=== PATIENT | male | born 1955 | race American Indian/Alaskan Native ===

== ENCOUNTER 2017-09-27 12:06 | Inpatient (IN) | payer OTHER ==
[2017-09-27] MEDS ORDERED: NACL 0.9% 1000 ML 1,000 ML ONE (12:57)
[2017-09-27] MEDS ORDERED: CARDIZEM IV ONE (12:58)
[2017-09-27] MEDS ORDERED: NACL 0.9% 1000 ML 1,000 ML IV ONE (12:58)
[2017-09-27] MEDS ORDERED: CARDIZEM ONE (12:58)
[2017-09-27 13:06] LABS: Basophils # (Auto) 0.1 K/mm3 (0.0-0.1); Basophils % (Auto) 0.4 % (0.0-1.8); Hematocrit 50.1 % (35.5-45.6); Hemoglobin 16.5 gm/dl (11.8-15.2); Lymphocytes # (Auto) 1.5 K/mm3 (1.2-5.4); Lymphocytes % (Auto) 11.5 % (13.4-35.0); Mean Corpuscular HGB Conc 33 % (32-34); Mean Corpuscular Hemoglobin 31 pg (28-32); Mean Corpuscular Volume 95 fl (84-94); Monocytes % (Auto) 7.7 % (0.0-7.3); Platelet Count 308 K/mm3 (140-440); Red Blood Count 5.26 M/mm3 (3.65-5.03); Red Cell Distribution Width 14.3 % (13.2-15.2)
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
[2017-09-27 13:26] LABS: Alanine Aminotransferase 93 units/L (7-56); BUN/Creatinine Ratio 56; Blood Urea Nitrogen 79 mg/dL (9-20); Calcium 9.3 mg/dL (8.4-10.2); Hemolysis Index 4
[2017-09-27] MEDS ORDERED: HumuLIN R IV ONE (13:29)
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
[2017-09-27 13:45] LABS: Bilirubin,Urine NEG (Negative); Blood,Urine LG (Negative); Color,Urine Yellow (Yellow); Mucus,Urine FEW /HPF
--- NOTE | 2017-09-27 13:48 | History and Physical Report ---
History of Present Illness Chief complaint: confused History of present illness: 62 YO Male with no PMH presents to ED for evaluation. Pt is confused and unable to provide history. Pt history taken from family who is at bedside during exam and interview. As per family, the patient was in his usual state of health on September 18, which is the last time either family member present saw or spoke to the patient. [facility] Police were called to do a "well check" on the patient by a friend. Upon arrival, the patient was found down in his home and confused. EMS was notified, and upon arrival the patient was found to be confused and unable to provide history. Pt transported to [facility] for further care and evaluation. Pt seen and evaluated in ED and found to have Atrial Fib, Encephalopathy, as well as RLL Pneumonia complicated by Sepsis. Pt admitted to telemetry, and initiated on Sepsis/Pneumonia protocol. No reports of fever, chills, CP, Palpitations, NVD, Trauma, Falls, recent ill contacts. Past History Past Medical History: No medical history, other (reviewed) Past Surgical History: No surgical history, Other (reviewed) Social history: single, Lives alone. denies: smoking, alcohol abuse, prescription drug abuse Family history: diabetes, hypertension Medications and Allergies Allergies Allergy/AdvReac Type Severity Reaction Status Date / Time Unable to Assess Allergy Verified 09/27/17 13:00 Home Medications Medication Instructions Recorded Confirmed Last Taken Type No Known Home Medications [No 09/27/17 09/27/17 Unknown History Reported Home Medications] Active Meds: Active Medications Diltiazem HCl (Cardizem/D5w 100mg/100ml) 100 mg in 100 mls @ 5 mls/hr IV TITR HEATH; Protocol Review of Systems ROS unobtainable: due to mental status Exam - Constitutional General appearance: Present: mild distress - EENT Eyes: Present: PERRL ENT: hearing intact, clear oral mucosa - Neck Neck: Present: supple, normal ROM - Respiratory Respiratory effort: labored Respiratory: bilateral: diminished - Cardiovascular Rhythm: irregularly irregular Heart Sounds: Present: S1 & S2. Absent: rub, click - Extremities Extremities: pulses symmetrical, No edema Peripheral Pulses: abnormal (capillary refill greater than 3.6 seconds.) - Abdominal General gastrointestinal: Present: soft, non-tender, non-distended, normal bowel sounds Male genitourinary: Present: normal - Integumentary Integumentary: Present: clear, dry, clammy, decreased turgor - Musculoskeletal Musculoskeletal: generalized weakness - Psychiatric Psychiatric: no intact judgment & insight, no memory intact - Neurologic Neurologic: CNII-XII intact, no focal deficits, moves all extremities, no gait normal Results - Labs CBC & Chem 7: 09/27/17 12:47 09/27/17 12:47 Labs: Abnormal lab results 09/27/17 09/27/17 09/27/17 Range/Units 12:47 12:47 12:54 WBC 13.3 H (4.5-11.0) K/mm3 RBC 5.26 H (3.65-5.03) M/mm3 Hgb 16.5 H (11.8-15.2) gm/dl Hct 50.1 H (35.5-45.6) % MCV 95 H (84-94) fl Lymph % (Auto) 11.5 L (13.4-35.0) % [place] % (Auto) 7.7 H (0.0-7.3) % [place] # 1.0 H (0.0-0.8) K/mm3 Seg Neutrophils % 80.4 H (40.0-70.0) % Seg Neutrophils # 10.7 H (1.8-7.7) K/mm3 VBG pH (7.320-7.420) Sodium 146 H (137-145) mmol/L BUN 79 H (9-20) mg/dL Glucose 549 H* (75-100) mg/dL POC Glucose 392 H (70-105) Lactic Acid (0.7-2.0) mmol/L AST 90 H (5-40) units/L ALT 93 H (7-56) units/L Alkaline Phosphatase 163 H (35-129) units/L Total Creatine Kinase (55-170) units/L Albumin 3.0 L (3.9-5) g/dL Urine WBC (Auto) (0.0-6.0) /HPF 09/27/17 09/27/17 09/27/17 Range/Units 12:59 12:59 12:59 WBC (4.5-11.0) K/mm3 RBC (3.65-5.03) M/mm3 Hgb (11.8-15.2) gm/dl Hct (35.5-45.6) % MCV (84-94) fl Lymph % (Auto) (13.4-35.0) % [place] % (Auto) (0.0-7.3) % [place] # (0.0-0.8) K/mm3 Seg Neutrophils % (40.0-70.0) % Seg Neutrophils # (1.8-7.7) K/mm3 VBG pH 7.517 H (7.320-7.420) Sodium (137-145) mmol/L BUN (9-20) mg/dL Glucose (75-100) mg/dL POC Glucose (70-105) Lactic Acid 3.50 H* (0.7-2.0) mmol/L AST (5-40) units/L ALT (7-56) units/L Alkaline Phosphatase (35-129) units/L Total Creatine Kinase 682 H (55-170) units/L Albumin (3.9-5) g/dL Urine WBC (Auto) (0.0-6.0) /HPF 09/27/17 Range/Units 13:10 WBC (4.5-11.0) K/mm3 RBC (3.65-5.03) M/mm3 Hgb (11.8-15.2) gm/dl Hct (35.5-45.6) % MCV (84-94) fl Lymph % (Auto) (13.4-35.0) % [place] % (Auto) (0.0-7.3) % [place] # (0.0-0.8) K/mm3 Seg Neutrophils % (40.0-70.0) % Seg Neutrophils # (1.8-7.7) K/mm3 VBG pH (7.320-7.420) Sodium (137-145) mmol/L BUN (9-20) mg/dL Glucose (75-100) mg/dL POC Glucose (70-105) Lactic Acid (0.7-2.0) mmol/L AST (5-40) units/L ALT (7-56) units/L Alkaline Phosphatase (35-129) units/L Total Creatine Kinase (55-170) units/L Albumin (3.9-5) g/dL Urine WBC (Auto) 7.0 H (0.0-6.0) /HPF Assessment and Plan - Patient Problems (1) Sepsis Current Visit: Yes Status: Acute Qualifiers: Sepsis type: sepsis due to unspecified organism Qualified Code(s): A41.9 - Sepsis, unspecified organism Plan to address problem: Sepsis Protocol: IV antibiotic therapy, blood cultures, Chest x ray, urinialysis , CBC, CMP, monitor uop q shift, serial lactic acid (2) Encephalopathy Current Visit: Yes Status: Acute Plan to address problem: CT Head, neuro checks, supportive care, seizure precautions, (3) Atrial fibrillation with RVR Current Visit: Yes Status: Acute Plan to address problem: New onset A Fib: Echo, cardiology consulted, medical cardioversion with cardizem , cardizem drip switched to oral cardizem, Admit to telemetry, thyroid panel, supportive care, (4) Lactic acidosis Current Visit: Yes Status: Acute Plan to address problem: IVF resuscitation therapy, treat sepsis, repeat lactic acid level. (5) Pneumonia Current Visit: Yes Status: Acute Qualifiers: Pneumonia type: due to unspecified organism Laterality: right Lung location: lower lobe of lung Qualified Code(s): J18.1 - Lobar pneumonia, unspecified organism Plan to address problem: Pneumonia protocol: Iv antibiotics, supplemental oxygen, nebulizer therapy, NIPPV as clinically indicated, blood cultures, chest x ray. (6) Uncontrolled diabetes mellitus Current Visit: Yes Status: Acute Qualifiers: Diabetes mellitus type: type 1 Diabetes mellitus complication status: with hyperglycemia Qualified Code(s): E10.65 - Type 1 diabetes mellitus with hyperglycemia Plan to address problem: ADA diet, insulin, accu check, Hgb A1c, (7) DVT prophylaxis Current Visit: Yes Status: Acute Plan to address problem: scd to BLE while in bed.
[2017-09-27 13:54] LABS: Amphetamine Screen,Urine PRESUMPTIVE NEGATIVE; Benzodiazepines Screen,Urine PRESUMPTIVE NEGATIVE; Cannabinoid Screen,Urine PRESUMPTIVE NEGATIVE; Cocaine Screen,Urine PRESUMPTIVE NEGATIVE; Methadone Screen,Urine PRESUMPTIVE NEGATIVE; Opiate Screen,Urine PRESUMPTIVE NEGATIVE
[2017-09-27] MEDS ORDERED: CARDIZEM/D5W 100MG/100ML 100 MG/100 ML BAG IV SCH (14:00)
--- NOTE | 2017-09-27 14:47 | XRay Report ---
Portable chest: Altered mental status. Mild patchy changes are identified at the lower right lung base. The rest of the right lung is clear and well inflated in the left lung is unremarkable. There is probably mild enlargement of the left ventricle but no vascular congestion. No prior study currently available for comparison. Impression: Suspicious for right lower lobe pneumonia.
--- NOTE | 2017-09-27 15:39 | Cat Scan Report ---
CTA chest: SOB, elevated d-dimer. Transverse images are obtained through the chest using pulmonary embolus protocol. Coronal and sagittal 2-D reformatted images are included as well as 3-D MIP images. There is good opacification of pulmonary arteries cardiac chambers and thoracic aorta. No filling defects identified in the pulmonary vessels or cardiac chambers. The thoracic aorta is normal in size and contour. No hilar or mediastinal adenopathy appreciated. There is extensive pulmonary consolidation in the right lower lobe with air bronchograms. No endobronchial lesion identified. The right lung as well as the left lung is otherwise unremarkable. There is diffuse spondylosis throughout the thoracic spine with a mild dextroscoliosis of and increased kyphosis. Impression: 1. Right lower lobe pneumonia. 2. No identified pulmonary embolus.
[2017-09-27] MEDS ORDERED: LEVAQUIN 750MG/150ML 750 MG/150 ML BAG IV ONE (15:40)
[2017-09-27] MEDS ORDERED: CARDIZEM PO ONE (16:00)
[2017-09-27] MEDS ORDERED: NACL 0.9% 1000 ML IV ONE (16:03)
[2017-09-27] MEDS ORDERED: PROVENTIL IH PRN (16:06)
[2017-09-27] MEDS ORDERED: TYLENOL PO PRN (16:06)
[2017-09-27] MEDS ORDERED: ZOFRAN IV PRN (16:06)
[2017-09-27] MEDS ORDERED: SODIUM CHLORIDE FLUSH SYRINGE 10 ML IV PRN (16:06)
[2017-09-27 16:36] LABS: Free T4 (Free Thyroxine) 0.93 ng/dL (0.76-1.46)
[2017-09-27] MEDS ORDERED: D50W (25GM) Syringe IV PRN (17:24)
[2017-09-27] MEDS: ZITHROMAX 500 MG in NACL 0.9% 250ML 250 ML IV SCH (17:38)
[2017-09-27] MEDS: HumaLOG SUB-Q SCH (19:20)
[2017-09-27] MEDS: ROCEPHIN/NS 2 GM/100 ML 2 GM/100 ML BAG IV SCH (20:00)
[2017-09-27] MEDS: ATIVAN IV PRN (23:44)
[2017-09-27] MEDS: SODIUM CHLORIDE FLUSH SYRINGE 10 ML IV SCH (23:45)
[2017-09-28] MEDS: HumaLOG SUB-Q SCH ×4 (02:10→18:23)
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
[2017-09-28] MEDS ORDERED: CARDIZEM IV ONE (11:11)
--- NOTE | 2017-09-28 11:40 | Progress Note ---
Assessment and Plan Assessment and plan: Sepsis. Etiology secondary to pneumonia. Continue IV antibiotics. Follow blood cultures. Trend lactic acid level. Right lower lobe pneumonia. Continue IV antibiotics as above. Atrial fibrillation with RVR. Patient reportedly had atrial fibrillation noted in the emergency room which is new onset. Patient with medical conversion with IV Cardizem that was later switched to by mouth. Acute renal failure/Acute kidney injury. Etiology secondary to sepsis +/- vasomotor nephropathy/dehydration. Continue to follow BMP. Check renal ultrasound. Toxic metabolic encephalopathy. Etiology secondary to above. Diabetes mellitus type 2, uncontrolled. Continue Accu-Cheks and sliding scale insulin. DVT prophylaxis. Add Lovenox. History Interval history: No new issues overnight. Patient remains confused and required restraints. Hospitalist Physical - Constitutional Vitals: Temp Pulse Resp BP Pulse Ox 98.9 F 60 20 181/90 94 09/28/17 05:31 09/28/17 08:44 09/28/17 08:44 09/28/17 08:44 09/28/17 08:46 General appearance: Present: no acute distress - EENT Eyes: Present: PERRL, EOM intact ENT: hearing intact, clear oral mucosa, dentition normal - Neck Neck: Present: supple, normal ROM - Respiratory Respiratory effort: normal Respiratory: bilateral: CTA - Cardiovascular Rhythm: regular Heart Sounds: Present: S1 & S2. Absent: gallop, rub - Extremities Extremities: no ischemia, No edema, Full ROM - Abdominal General gastrointestinal: soft, non-tender, non-distended, normal bowel sounds - Integumentary Integumentary: Present: clear, warm, dry - Neurologic Neurologic: CNII-XII intact, moves all extremities, other (confused.) Results - Labs CBC & Chem 7: 09/27/17 12:47 09/27/17 12:47 Labs: Laboratory Last Values WBC 13.3 K/mm3 (4.5-11.0) H 09/27/17 12:47 RBC 5.26 M/mm3 (3.65-5.03) H 09/27/17 12:47 Hgb 16.5 gm/dl (11.8-15.2) H 09/27/17 12:47 Hct 50.1 % (35.5-45.6) H 09/27/17 12:47 MCV 95 fl (84-94) H 09/27/17 12:47 MCH 31 pg (28-32) 09/27/17 12:47 MCHC 33 % (32-34) 09/27/17 12:47 RDW 14.3 % (13.2-15.2) 09/27/17 12:47 Plt Count 308 K/mm3 (140-440) 09/27/17 12:47 Lymph % (Auto) 11.5 % (13.4-35.0) L 09/27/17 12:47 [place] % (Auto) 7.7 % (0.0-7.3) H 09/27/17 12:47 Eos % (Auto) 0.0 % (0.0-4.3) 09/27/17 12:47 Baso % (Auto) 0.4 % (0.0-1.8) 09/27/17 12:47 Lymph # 1.5 K/mm3 (1.2-5.4) 09/27/17 12:47 [place] # 1.0 K/mm3 (0.0-0.8) H 09/27/17 12:47 Eos # 0.0 K/mm3 (0.0-0.4) 09/27/17 12:47 Baso # 0.1 K/mm3 (0.0-0.1) 09/27/17 12:47 Seg Neutrophils % 80.4 % (40.0-70.0) H 09/27/17 12:47 Seg Neutrophils # 10.7 K/mm3 (1.8-7.7) H 09/27/17 12:47 D-Dimer 5685.50 ng/mlDDU (0-234) H 09/27/17 13:36 VBG pH 7.517 (7.320-7.420) H 09/27/17 12:59 Sodium 146 mmol/L (137-145) H 09/27/17 12:47 Potassium 4.7 mmol/L (3.6-5.0) 09/27/17 12:47 Chloride 103.6 mmol/L (98-107) 09/27/17 12:47 Carbon Dioxide 24 mmol/L (22-30) 09/27/17 12:47 Anion Gap 23 mmol/L 09/27/17 12:47 BUN 79 mg/dL (9-20) H 09/27/17 12:47 Creatinine 1.4 mg/dL (0.8-1.5) 09/27/17 12:47 Estimated GFR > 60 ml/min 09/27/17 12:47 BUN/Creatinine Ratio 56 % 09/27/17 12:47 Glucose 549 mg/dL (75-100) H* 09/27/17 12:47 POC Glucose 228 (70-105) H 09/28/17 06:20 Hemoglobin A1c 9.3 % (4-6) H 09/27/17 16:12 Lactic Acid 1.70 mmol/L (0.7-2.0) 09/28/17 01:05 Calcium 9.3 mg/dL (8.4-10.2) 09/27/17 12:47 Magnesium 3.90 mg/dL (1.7-2.3) H 09/27/17 15:48 Total Bilirubin 1.10 mg/dL (0.1-1.2) 09/27/17 12:47 AST 90 units/L (5-40) H 09/27/17 12:47 ALT 93 units/L (7-56) H 09/27/17 12:47 Alkaline Phosphatase 163 units/L (35-129) H 09/27/17 12:47 Ammonia 32.0 umol/L (25-60) 09/27/17 12:59 Total Creatine Kinase 682 units/L (55-170) H 09/27/17 12:59 Total Protein 7.9 g/dL (6.3-8.2) 09/27/17 12:47 Albumin 3.0 g/dL (3.9-5) L 09/27/17 12:47 Albumin/Globulin Ratio 0.6 % 09/27/17 12:47 TSH 0.882 mlU/mL (0.270-4.200) 09/27/17 15:48 Free T4 0.93 ng/dL (0.76-1.46) 09/27/17 15:48 Urine Color Yellow (Yellow) 09/27/17 13:10 Urine Turbidity Clear (Clear) 09/27/17 13:10 Urine pH 5.0 (5.0-7.0) 09/27/17 13:10 Ur Specific [place] 1.026 (1.003-1.030) 09/27/17 13:10 Urine Protein 100 mg/dl mg/dL (Negative) 09/27/17 13:10 Urine Glucose (UA) >=500 mg/dL (Negative) 09/27/17 13:10 Urine Ketones Neg mg/dL (Negative) 09/27/17 13:10 Urine Blood Lg (Negative) 09/27/17 13:10 Urine Nitrite Neg (Negative) 09/27/17 13:10 Urine Bilirubin Neg (Negative) 09/27/17 13:10 Urine Urobilinogen 2.0 mg/dL (<2.0) 09/27/17 13:10 Ur Leukocyte Esterase Neg (Negative) 09/27/17 13:10 Urine WBC (Auto) 7.0 /HPF (0.0-6.0) H 09/27/17 13:10 Urine RBC (Auto) 181.0 /HPF (0.0-6.0) 09/27/17 13:10 U Epithel Cells (Auto) < 1.0 /HPF (0-13.0) 09/27/17 13:10 Urine Mucus Few /HPF 09/27/17 13:10 Urine Opiates Screen Presumptive negative 09/27/17 13:10 Urine Methadone Screen Presumptive negative 09/27/17 13:10 Ur Barbiturates Screen Presumptive negative 09/27/17 13:10 Ur Phencyclidine Scrn Presumptive negative 09/27/17 13:10 Ur Amphetamines Screen Presumptive negative 09/27/17 13:10 U Benzodiazepines Scrn Presumptive negative 09/27/17 13:10 Urine Cocaine Screen Presumptive negative 09/27/17 13:10 U Marijuana (THC) Screen Presumptive negative 09/27/17 13:10 Drugs of Abuse Note Disclamer 09/27/17 13:10 Plasma/Serum Alcohol < 0.01 % (0-0.07) 09/27/17 12:52
[2017-09-28] MEDS: CARDIZEM/D5W 100MG/100ML 100 MG/100 ML BAG IV SCH ×2 (11:46→22:30)
[2017-09-28] MEDS: SODIUM CHLORIDE FLUSH SYRINGE 10 ML IV SCH ×2 (11:47→22:22)
[2017-09-28] MEDS: NACL 0.9% 1000 ML 1,000 ML IV SCH ×2 (11:47→22:26)
[2017-09-28] MEDS: ZITHROMAX 500 MG in NACL 0.9% 250ML 250 ML IV SCH (18:23)
--- NOTE | 2017-09-28 19:09 | Ultrasound Report ---
FINAL REPORT EXAM: US RENAL BILAT HISTORY: ARF TECHNIQUE: Directed sonography of the retroperitoneum. PRIORS: None. FINDINGS: The right kidney measures 11.9 cm in longest dimension and the left kidney measures 10.9 cm in longest dimension. Renal cortical echotexture mildly heterogeneous and iso-slightly hypoechoic relative to the liver. Curvilinear, echogenic and shadowing focus left renal upper pole measuring 2 cm compatible with calcification or possible calculus. No other intrarenal calculi, significant hydronephrosis or abnormal perinephric fluid collections. Visualized urinary bladder grossly unremarkable. Round, hyperechoic focus in right inferior hepatic lobe measuring approximately 1 cm, with slight posterior acoustic enhancement. IMPRESSION: 1. Left renal calcification may represent nephrolithiasis, although partially calcified mass cannot be completely excluded based on these imaging findings alone. Clinical correlation and followup suggested. 2. No significant hydronephrosis. 3. Possible hepatic hemangioma. Followup may be warranted.
[2017-09-28] MEDS: ATIVAN IV PRN (22:11)
[2017-09-28] MEDS: LOVENOX SUB-Q SCH (22:11)
[2017-09-28] MEDS: ROCEPHIN/NS 2 GM/100 ML 2 GM/100 ML BAG IV SCH (22:18)
[2017-09-29] MEDS: HumaLOG SUB-Q SCH ×4 (00:46→18:55)
[2017-09-29] MEDS: ATIVAN IV PRN ×2 (04:00→21:43)
[2017-09-29 08:44] LABS: Basophils % (Auto) 0.1 % (0.0-1.8); Eosinophils % (Auto) 0.3 % (0.0-4.3); Hematocrit 47.6 % (35.5-45.6); Hemoglobin 15.4 gm/dl (11.8-15.2); Lymphocytes # (Auto) 1.9 K/mm3 (1.2-5.4); Lymphocytes % (Auto) 15.5 % (13.4-35.0); Mean Corpuscular HGB Conc 32 % (32-34); Mean Corpuscular Hemoglobin 31 pg (28-32); Mean Corpuscular Volume 97 fl (84-94); Monocytes # (Auto) 0.9 K/mm3 (0.0-0.8); Monocytes % (Auto) 7.3 % (0.0-7.3); Platelet Count 307 K/mm3 (140-440); Red Blood Count 4.91 M/mm3 (3.65-5.03); Red Cell Distribution Width 14.2 % (13.2-15.2)
[2017-09-29 08:59] LABS: Alanine Aminotransferase 69 units/L (7-56); Albumin 2.7 g/dL (3.9-5); BUN/Creatinine Ratio 48; Blood Urea Nitrogen 38 mg/dL (9-20); Calcium 9.1 mg/dL (8.4-10.2); Hemolysis Index 7
--- NOTE | 2017-09-29 12:00 | Progress Note ---
Assessment and Plan Assessment and plan: Sepsis. Etiology secondary to pneumonia. Continue IV antibiotics. Follow blood cultures. Trend lactic acid level. Right lower lobe pneumonia. Continue IV antibiotics as above. Atrial fibrillation with RVR. Patient reportedly had atrial fibrillation noted in the emergency room which is new onset. Patient with medical conversion with IV Cardizem that was later switched to by mouth. Acute renal failure/Acute kidney injury. Etiology secondary to sepsis +/- vasomotor nephropathy/dehydration. Continue to follow BMP. Check renal ultrasound. Renal consult. Hypernatremia. Change IVF to D51/4NS. Elevated LFTs. Likely sec to sepsis. Toxic metabolic encephalopathy. Etiology secondary to above. Also, Consider embolic CVA given his afib. Neurology consultation. MRI when stable. Check EEG. Check Ammonia level Diabetes mellitus type 2, uncontrolled. Continue Accu-Cheks and sliding scale insulin. DVT prophylaxis. Add Lovenox. History Interval history: No new issues overnight. Patient remains confused and required restraints. Hospitalist Physical - Constitutional Vitals: Temp Pulse Resp BP Pulse Ox 98.7 F 60 16 170/108 96 09/29/17 07:43 09/29/17 07:43 09/29/17 07:43 09/29/17 07:43 09/29/17 07:43 General appearance: Present: no acute distress - EENT Eyes: Present: PERRL, EOM intact ENT: hearing intact, clear oral mucosa, dentition normal - Neck Neck: Present: supple, normal ROM - Respiratory Respiratory effort: normal Respiratory: bilateral: CTA - Cardiovascular Rhythm: regular Heart Sounds: Present: S1 & S2. Absent: gallop, rub - Extremities Extremities: no ischemia, No edema, Full ROM - Abdominal General gastrointestinal: soft, non-tender, non-distended, normal bowel sounds - Integumentary Integumentary: Present: clear, warm, dry - Neurologic Neurologic: CNII-XII intact, moves all extremities Results - Labs CBC & Chem 7: 09/29/17 07:13 09/29/17 07:13 Labs: Laboratory Last Values WBC 12.0 K/mm3 (4.5-11.0) H 09/29/17 07:13 RBC 4.91 M/mm3 (3.65-5.03) 09/29/17 07:13 Hgb 15.4 gm/dl (11.8-15.2) H 09/29/17 07:13 Hct 47.6 % (35.5-45.6) H 09/29/17 07:13 MCV 97 fl (84-94) H 09/29/17 07:13 MCH 31 pg (28-32) 09/29/17 07:13 MCHC 32 % (32-34) 09/29/17 07:13 RDW 14.2 % (13.2-15.2) 09/29/17 07:13 Plt Count 307 K/mm3 (140-440) 09/29/17 07:13 Lymph % (Auto) 15.5 % (13.4-35.0) 09/29/17 07:13 [place] % (Auto) 7.3 % (0.0-7.3) 09/29/17 07:13 Eos % (Auto) 0.3 % (0.0-4.3) 09/29/17 07:13 Baso % (Auto) 0.1 % (0.0-1.8) 09/29/17 07:13 Lymph # 1.9 K/mm3 (1.2-5.4) 09/29/17 07:13 [place] # 0.9 K/mm3 (0.0-0.8) H 09/29/17 07:13 Eos # 0.0 K/mm3 (0.0-0.4) 09/29/17 07:13 Baso # 0.0 K/mm3 (0.0-0.1) 09/29/17 07:13 Seg Neutrophils % 76.8 % (40.0-70.0) H 09/29/17 07:13 Seg Neutrophils # 9.2 K/mm3 (1.8-7.7) H 09/29/17 07:13 D-Dimer 5685.50 ng/mlDDU (0-234) H 09/27/17 13:36 VBG pH 7.517 (7.320-7.420) H 09/27/17 12:59 Sodium 158 mmol/L (137-145) H D 09/29/17 07:13 Potassium 4.3 mmol/L (3.6-5.0) 09/29/17 07:13 Chloride 120.2 mmol/L (98-107) H 09/29/17 07:13 Carbon Dioxide 25 mmol/L (22-30) 09/29/17 07:13 Anion Gap 17 mmol/L 09/29/17 07:13 BUN 38 mg/dL (9-20) H 09/29/17 07:13 Creatinine 0.8 mg/dL (0.8-1.5) 09/29/17 07:13 Estimated GFR > 60 ml/min 09/29/17 07:13 BUN/Creatinine Ratio 48 % 09/29/17 07:13 Glucose 205 mg/dL (75-100) H 09/29/17 07:13 POC Glucose 227 (70-105) H 09/29/17 06:40 Hemoglobin A1c 9.3 % (4-6) H 09/27/17 16:12 Lactic Acid 1.70 mmol/L (0.7-2.0) 09/28/17 01:05 Calcium 9.1 mg/dL (8.4-10.2) 09/29/17 07:13 Magnesium 3.90 mg/dL (1.7-2.3) H 09/27/17 15:48 Total Bilirubin 1.10 mg/dL (0.1-1.2) 09/29/17 07:13 AST 80 units/L (5-40) H 09/29/17 07:13 ALT 69 units/L (7-56) H 09/29/17 07:13 Alkaline Phosphatase 143 units/L (35-129) H 09/29/17 07:13 Ammonia 32.0 umol/L (25-60) 09/27/17 12:59 Total Creatine Kinase 682 units/L (55-170) H 09/27/17 12:59 Total Protein 6.8 g/dL (6.3-8.2) 09/29/17 07:13 Albumin 2.7 g/dL (3.9-5) L 09/29/17 07:13 Albumin/Globulin Ratio 0.7 % 09/29/17 07:13 TSH 1.080 mlU/mL (0.270-4.200) 09/28/17 12:07 Free T4 0.93 ng/dL (0.76-1.46) 09/27/17 15:48 Urine Color Yellow (Yellow) 09/27/17 13:10 Urine Turbidity Clear (Clear) 09/27/17 13:10 Urine pH 5.0 (5.0-7.0) 09/27/17 13:10 Ur Specific [place] 1.026 (1.003-1.030) 09/27/17 13:10 Urine Protein 100 mg/dl mg/dL (Negative) 09/27/17 13:10 Urine Glucose (UA) >=500 mg/dL (Negative) 09/27/17 13:10 Urine Ketones Neg mg/dL (Negative) 09/27/17 13:10 Urine Blood Lg (Negative) 09/27/17 13:10 Urine Nitrite Neg (Negative) 09/27/17 13:10 Urine Bilirubin Neg (Negative) 09/27/17 13:10 Urine Urobilinogen 2.0 mg/dL (<2.0) 09/27/17 13:10 Ur Leukocyte Esterase Neg (Negative) 09/27/17 13:10 Urine WBC (Auto) 7.0 /HPF (0.0-6.0) H 09/27/17 13:10 Urine RBC (Auto) 181.0 /HPF (0.0-6.0) 09/27/17 13:10 U Epithel Cells (Auto) < 1.0 /HPF (0-13.0) 09/27/17 13:10 Urine Mucus Few /HPF 09/27/17 13:10 Urine Opiates Screen Presumptive negative 09/27/17 13:10 Urine Methadone Screen Presumptive negative 09/27/17 13:10 Ur Barbiturates Screen Presumptive negative 09/27/17 13:10 Ur Phencyclidine Scrn Presumptive negative 09/27/17 13:10 Ur Amphetamines Screen Presumptive negative 09/27/17 13:10 U Benzodiazepines Scrn Presumptive negative 09/27/17 13:10 Urine Cocaine Screen Presumptive negative 09/27/17 13:10 U Marijuana (THC) Screen Presumptive negative 09/27/17 13:10 Drugs of Abuse Note Disclamer 09/27/17 13:10 Plasma/Serum Alcohol < 0.01 % (0-0.07) 09/27/17 12:52
[2017-09-29] MEDS: SODIUM CHLORIDE FLUSH SYRINGE 10 ML IV SCH ×2 (12:20→21:38)
--- NOTE | 2017-09-29 12:47 | Progress Note ---
Assessment and Plan AMS Encephalopathy Sepsis Possible CVA Acute renal insufficiency Hypertension hypernatermia rec: ng tube for free water and nutrition. neuro consult for ams, speech and echo pending Subjective Date of service: 09/29/17 Principal diagnosis: afib Interval history: pt has altered mental status Objective Vital Signs Temp Pulse Resp BP Pulse Ox 09/29/17 07:43 98.7 F 60 16 170/108 96 09/29/17 04:26 97.3 F L 70 22 176/120 92 09/28/17 23:50 97.8 F 42 L 18 138/95 95 09/28/17 22:00 96 09/28/17 20:23 97.6 F 55 L 20 166/101 95 09/28/17 17:02 62 18 183/107 93 09/28/17 16:00 98.0 F - Physical Examination General: Other HEENT: Positive: PERRL, EOMI Neck: Positive: neck supple Cardiac: Positive: Irregularly Regular Lungs: Positive: Decreased Breath Sounds Neuro: Positive: Other (ams) Abdomen: Positive: Soft Extremities: Absent: edema - Labs and Meds Cardiac Enzymes 09/29/17 Range/Units 07:13 AST 80 H (5-40) units/L CBC 09/29/17 Range/Units 07:13 WBC 12.0 H (4.5-11.0) K/mm3 RBC 4.91 (3.65-5.03) M/mm3 Hgb 15.4 H (11.8-15.2) gm/dl Hct 47.6 H (35.5-45.6) % Plt Count 307 (140-440) K/mm3 Lymph # 1.9 (1.2-5.4) K/mm3 [place] # 0.9 H (0.0-0.8) K/mm3 Eos # 0.0 (0.0-0.4) K/mm3 Baso # 0.0 (0.0-0.1) K/mm3 Comprehensive Metabolic Panel 09/29/17 Range/Units 07:13 Sodium 158 H D (137-145) mmol/L Potassium 4.3 (3.6-5.0) mmol/L Chloride 120.2 H (98-107) mmol/L Carbon Dioxide 25 (22-30) mmol/L BUN 38 H (9-20) mg/dL Creatinine 0.8 (0.8-1.5) mg/dL Glucose 205 H (75-100) mg/dL Calcium 9.1 (8.4-10.2) mg/dL AST 80 H (5-40) units/L ALT 69 H (7-56) units/L Alkaline Phosphatase 143 H (35-129) units/L Total Protein 6.8 (6.3-8.2) g/dL Albumin 2.7 L (3.9-5) g/dL - Imaging and Cardiology Echo: pending - Telemetry EKG Rhythm: Atrial Fibrillation (avg 90's)
[2017-09-29] MEDS ORDERED: D5NS 0.2% 1,000 ML IV SCH (13:00)
--- NOTE | 2017-09-29 14:22 | XRay Report ---
FINAL REPORT PROCEDURE: XR ABDOMEN 1V AP TECHNIQUE: AP supine portable radiograph of the abdomen was obtained at 09/29/2017 17:48 (T) . HISTORY: VERIFY DOBHOFF TUBE PLACEMENT COMPARISON: No prior studies are available for comparison. FINDINGS: Feeding tube is visualized. This is coiled over the stomach. The metallic end of the tube appears to be located in the region of the antrum of the stomach. A calculus appears to be visualized projecting over the midportion of the left kidney measuring 2.0 x 1.5 centimeters. No other abnormal calcifications are seen. Moderate degenerative changes seen in the lower lumbar spine. Nonspecific bowel gas pattern present. IMPRESSION: Dobhoff feeding tube tip appears to be located in the region of the antrum of the stomach. Moderate-size calculus left kidney.
--- NOTE | 2017-09-29 14:45 | Event Note ---
received consultation Chart reviewed We will order labs moderate hypernatremia Patient needs IV hydration Will evaluate in the morning
[2017-09-29] MEDS: ZITHROMAX 500 MG in NACL 0.9% 250ML 250 ML IV SCH (18:51)
[2017-09-29] MEDS: CARDIZEM/D5W 100MG/100ML 100 MG/100 ML BAG IV SCH (21:37)
[2017-09-29] MEDS: LOVENOX SUB-Q SCH (21:42)
[2017-09-29] MEDS: ROCEPHIN/NS 2 GM/100 ML 2 GM/100 ML BAG IV SCH (21:57)
[2017-09-30] MEDS: HumaLOG SUB-Q SCH ×4 (01:18→18:36)
[2017-09-30 06:08] LABS: Basophils % (Auto) 0.5 % (0.0-1.8); Eosinophils # (Auto) 0.1 K/mm3 (0.0-0.4); Hematocrit 48.1 % (35.5-45.6); Hemoglobin 15.7 gm/dl (11.8-15.2); Lymphocytes # (Auto) 1.7 K/mm3 (1.2-5.4); Lymphocytes % (Auto) 20.1 % (13.4-35.0); Mean Corpuscular HGB Conc 33 % (32-34); Mean Corpuscular Hemoglobin 32 pg (28-32); Mean Corpuscular Volume 97 fl (84-94); Monocytes # (Auto) 0.8 K/mm3 (0.0-0.8); Monocytes % (Auto) 9.1 % (0.0-7.3); Platelet Count 300 K/mm3 (140-440); Red Blood Count 4.96 M/mm3 (3.65-5.03); Red Cell Distribution Width 14.3 % (13.2-15.2)
[2017-09-30 06:51] LABS: Alanine Aminotransferase 67 units/L (7-56); Albumin 2.5 g/dL (3.9-5); BUN/Creatinine Ratio 43; Blood Urea Nitrogen 30 mg/dL (9-20); Calcium 8.9 mg/dL (8.4-10.2); Hemolysis Index 38
--- NOTE | 2017-09-30 08:29 | Consultation ---
History of Present Illness Consult date: 09/30/17 History of present illness: wsent over all the notes and labs show low sodium presented with encephalopathy factors noted the CT of the brain shows moderate atrophy no acute stroke w/u pending I have ordered EEG Thanks will follow Past History Past Medical History: No medical history, other (reviewed) Past Surgical History: No surgical history, Other (reviewed) Social history: single, Lives alone. denies: smoking, alcohol abuse, prescription drug abuse Family history: diabetes, hypertension Medications and Allergies Allergies Allergy/AdvReac Type Severity Reaction Status Date / Time Unable to Assess Allergy Verified 09/27/17 13:00 Home Medications Medication Instructions Recorded Confirmed Last Taken Type No Known Home Medications [No 09/27/17 09/27/17 Unknown History Reported Home Medications] Active Meds: Active Medications Acetaminophen (Tylenol) 650 mg PO Q4H PRN PRN Reason: Pain MILD(1-3)/Fever >100.5/PIKE Albuterol (Proventil) 2.5 mg IH Q4HRT PRN PRN Reason: Shortness Of Breath Dextrose (D50w (25gm) Syringe) 50 ml IV PRN PRN PRN Reason: Hypoglycemia Enoxaparin Sodium (Lovenox) 40 mg SUB-Q QDAY@2200 HEATH Last Admin: 09/29/17 21:42 Dose: 40 mg Azithromycin 500 mg/ Sodium (Chloride) 250 mls @ 250 mls/hr IV Q24H HEATH Last Admin: 09/29/17 18:51 Dose: 250 mls/hr Ceftriaxone Sodium (Rocephin/Ns 2 Gm/100 Ml) 2 gm in 100 mls @ 200 mls/hr IV Q24H HEATH; Protocol Last Admin: 09/29/17 21:57 Dose: 200 mls/hr Diltiazem HCl (Cardizem/D5w 100mg/100ml) 100 mg in 100 mls @ 5 mls/hr IV TITR HEATH; Protocol Last Admin: 09/29/17 21:37 Dose: 5 mg/hr, 5 mls/hr Dextrose/Sodium Chloride (D5ns 0.2%) 1,000 mls @ 75 mls/hr IV DIRECT HEATH Last Admin: 09/29/17 16:57 Dose: 75 mls/hr Insulin Human Lispro (Humalog) 0 unit SUB-Q Q6HR HEATH; Protocol Last Admin: 09/30/17 01:18 Dose: Not Given Lorazepam (Ativan) 0.25 mg IV Q4H PRN PRN Reason: Agitation Last Admin: 09/29/17 21:43 Dose: 0.25 mg Ondansetron HCl (Zofran) 4 mg IV Q8H PRN PRN Reason: Nausea And Vomiting Last Admin: 09/29/17 21:42 Dose: 4 mg Sodium Chloride (Sodium Chloride Flush Syringe 10 Ml) 10 ml IV BID HEATH Last Admin: 09/29/17 21:38 Dose: 10 ml Sodium Chloride (Sodium Chloride Flush Syringe 10 Ml) 10 ml IV PRN PRN PRN Reason: LINE FLUSH Physical Examination - Vital Signs Vital Signs: Vital Signs Temp Pulse Resp BP Pulse Ox 97.8 F 117 H 27 H 163/117 94 09/27/17 13:45 09/27/17 13:45 09/27/17 13:45 09/27/17 13:45 09/27/17 13:45 Results - Laboratory Findings CBC and BMP: 09/30/17 05:16 09/30/17 05:11 Abnormal Lab Findings: Abnormal Labs 09/27/17 09/27/17 09/27/17 12:47 12:47 12:54 WBC 13.3 H RBC 5.26 H Hgb 16.5 H Hct 50.1 H MCV 95 H Lymph % (Auto) 11.5 L [place] % (Auto) 7.7 H [place] # 1.0 H Seg Neutrophils % 80.4 H Seg Neutrophils # 10.7 H D-Dimer VBG pH Sodium 146 H Chloride BUN 79 H Creatinine Glucose 549 H* POC Glucose 392 H Hemoglobin A1c Lactic Acid Magnesium Total Bilirubin AST 90 H ALT 93 H Alkaline Phosphatase 163 H Total Creatine Kinase Albumin 3.0 L Urine WBC (Auto) 09/27/17 09/27/17 09/27/17 12:59 12:59 12:59 WBC RBC Hgb Hct MCV Lymph % (Auto) [place] % (Auto) [place] # Seg Neutrophils % Seg Neutrophils # D-Dimer VBG pH 7.517 H Sodium Chloride BUN Creatinine Glucose POC Glucose Hemoglobin A1c Lactic Acid 3.50 H* Magnesium Total Bilirubin AST ALT Alkaline Phosphatase Total Creatine Kinase 682 H Albumin Urine WBC (Auto) 09/27/17 09/27/17 09/27/17 13:10 13:36 15:48 WBC RBC Hgb Hct MCV Lymph % (Auto) [place] % (Auto) [place] # Seg Neutrophils % Seg Neutrophils # D-Dimer 5685.50 H VBG pH Sodium Chloride BUN Creatinine Glucose POC Glucose Hemoglobin A1c Lactic Acid Magnesium 3.90 H Total Bilirubin AST ALT Alkaline Phosphatase Total Creatine Kinase Albumin Urine WBC (Auto) 7.0 H 09/27/17 09/27/17 09/27/17 16:12 17:54 18:43 WBC RBC Hgb Hct MCV Lymph % (Auto) [place] % (Auto) [place] # Seg Neutrophils % Seg Neutrophils # D-Dimer VBG pH Sodium Chloride BUN Creatinine Glucose POC Glucose Hemoglobin A1c 9.3 H Lactic Acid 2.70 H* 3.40 H* Magnesium Total Bilirubin AST ALT Alkaline Phosphatase Total Creatine Kinase Albumin Urine WBC (Auto) 09/27/17 09/27/17 09/27/17 19:16 21:10 23:44 WBC RBC Hgb Hct MCV Lymph % (Auto) [place] % (Auto) [place] # Seg Neutrophils % Seg Neutrophils # D-Dimer VBG pH Sodium Chloride BUN Creatinine Glucose POC Glucose 370 H Hemoglobin A1c Lactic Acid 2.60 H* 2.40 H* Magnesium Total Bilirubin AST ALT Alkaline Phosphatase Total Creatine Kinase Albumin Urine WBC (Auto) 09/28/17 09/28/17 09/28/17 01:21 06:20 12:02 WBC RBC Hgb Hct MCV Lymph % (Auto) [place] % (Auto) [place] # Seg Neutrophils % Seg Neutrophils # D-Dimer VBG pH Sodium Chloride BUN Creatinine Glucose POC Glucose 226 H 228 H 278 H Hemoglobin A1c Lactic Acid Magnesium Total Bilirubin AST ALT Alkaline Phosphatase Total Creatine Kinase Albumin Urine WBC (Auto) 09/28/17 09/28/17 09/29/17 17:47 22:16 06:40 WBC RBC Hgb Hct MCV Lymph % (Auto) [place] % (Auto) [place] # Seg Neutrophils % Seg Neutrophils # D-Dimer VBG pH Sodium Chloride BUN Creatinine Glucose POC Glucose 316 H 214 H 227 H Hemoglobin A1c Lactic Acid Magnesium Total Bilirubin AST ALT Alkaline Phosphatase Total Creatine Kinase Albumin Urine WBC (Auto) 09/29/17 09/29/17 09/29/17 07:13 07:13 12:17 WBC 12.0 H RBC Hgb 15.4 H Hct 47.6 H MCV 97 H Lymph % (Auto) [place] % (Auto) [place] # 0.9 H Seg Neutrophils % 76.8 H Seg Neutrophils # 9.2 H D-Dimer VBG pH Sodium 158 H D Chloride 120.2 H BUN 38 H Creatinine Glucose 205 H POC Glucose 283 H Hemoglobin A1c Lactic Acid Magnesium Total Bilirubin AST 80 H ALT 69 H Alkaline Phosphatase 143 H Total Creatine Kinase Albumin 2.7 L Urine WBC (Auto) 09/29/17 09/29/17 09/30/17 16:20 21:12 05:11 WBC RBC Hgb Hct MCV Lymph % (Auto) [place] % (Auto) [place] # Seg Neutrophils % Seg Neutrophils # D-Dimer VBG pH Sodium 159 H Chloride 123.4 H BUN 30 H Creatinine 0.7 L Glucose 219 H POC Glucose 279 H 204 H Hemoglobin A1c Lactic Acid Magnesium Total Bilirubin 1.50 H AST 73 H ALT 67 H Alkaline Phosphatase 152 H Total Creatine Kinase Albumin 2.5 L Urine WBC (Auto) 09/30/17 05:16 WBC RBC Hgb 15.7 H Hct 48.1 H MCV 97 H Lymph % (Auto) [place] % (Auto) 9.1 H [place] # Seg Neutrophils % Seg Neutrophils # D-Dimer VBG pH Sodium Chloride BUN Creatinine Glucose POC Glucose Hemoglobin A1c Lactic Acid Magnesium Total Bilirubin AST ALT Alkaline Phosphatase Total Creatine Kinase Albumin Urine WBC (Auto)
--- NOTE | 2017-09-30 09:11 | Consultation ---
History of Present Illness - Reason for Consult Consult date: 09/30/17 hypernatremia - History of Present Illness Hx obtained from chart due to AMS 62 YO Male with no PMH presents to ED for evaluation. Pt was confused and unable to provide history. Per family, the patient was in his usual state of health on September 18, which is the last time either family member present saw or spoke to the patient. [facility] police were called to do a "well check" on the patient by a friend. Upon arrival, the patient was found down in his home and confused. EMS was notified, and upon arrival the patient was found to be confused and unable to provide history. He was transported to the ED and was found to have PNA and was in atrial fibrillation. Past History Past Medical History: No medical history, other (reviewed) Past Surgical History: No surgical history, Other (reviewed) Social history: single, Lives alone. denies: smoking, alcohol abuse, prescription drug abuse Family history: diabetes, hypertension Medications and Allergies Allergies Allergy/AdvReac Type Severity Reaction Status Date / Time Unable to Assess Allergy Verified 09/27/17 13:00 Home Medications Medication Instructions Recorded Confirmed Last Taken Type No Known Home Medications [No 09/27/17 09/27/17 Unknown History Reported Home Medications] Active Meds: Active Medications Acetaminophen (Tylenol) 650 mg PO Q4H PRN PRN Reason: Pain MILD(1-3)/Fever >100.5/PIKE Albuterol (Proventil) 2.5 mg IH Q4HRT PRN PRN Reason: Shortness Of Breath Dextrose (D50w (25gm) Syringe) 50 ml IV PRN PRN PRN Reason: Hypoglycemia Enoxaparin Sodium (Lovenox) 40 mg SUB-Q QDAY@2200 HEATH Last Admin: 09/29/17 21:42 Dose: 40 mg Azithromycin 500 mg/ Sodium (Chloride) 250 mls @ 250 mls/hr IV Q24H HEATH Last Admin: 09/29/17 18:51 Dose: 250 mls/hr Ceftriaxone Sodium (Rocephin/Ns 2 Gm/100 Ml) 2 gm in 100 mls @ 200 mls/hr IV Q24H HEATH; Protocol Last Admin: 09/29/17 21:57 Dose: 200 mls/hr Diltiazem HCl (Cardizem/D5w 100mg/100ml) 100 mg in 100 mls @ 5 mls/hr IV TITR HEATH; Protocol Last Admin: 09/29/17 21:37 Dose: 5 mg/hr, 5 mls/hr Dextrose/Sodium Chloride (D5ns 0.2%) 1,000 mls @ 75 mls/hr IV DIRECT HEATH Last Admin: 09/29/17 16:57 Dose: 75 mls/hr Insulin Human Lispro (Humalog) 0 unit SUB-Q Q6HR HEATH; Protocol Last Admin: 09/30/17 06:00 Dose: Not Given Lorazepam (Ativan) 0.25 mg IV Q4H PRN PRN Reason: Agitation Last Admin: 09/29/17 21:43 Dose: 0.25 mg Ondansetron HCl (Zofran) 4 mg IV Q8H PRN PRN Reason: Nausea And Vomiting Last Admin: 09/29/17 21:42 Dose: 4 mg Sodium Chloride (Sodium Chloride Flush Syringe 10 Ml) 10 ml IV BID HEATH Last Admin: 09/29/17 21:38 Dose: 10 ml Sodium Chloride (Sodium Chloride Flush Syringe 10 Ml) 10 ml IV PRN PRN PRN Reason: LINE FLUSH Review of Systems ROS unobtainable: due to mental status Exam - Vital Signs Vital signs: Vital Signs Temp Pulse Resp BP Pulse Ox 97.8 F 117 H 27 H 163/117 94 09/27/17 13:45 09/27/17 13:45 09/27/17 13:45 09/27/17 13:45 09/27/17 13:45 - General Appearance General appearance: well-developed, well-nourished EENT: ATNC, mucous membranes dry Respiratory: Clear to Ascultation Heart: regular, S1S2 Gastrointestinal: Present: normal. Absent: tenderness, distended Integumentary: no rash, warm and dry Neurologic: confused, other (lethargic) Musculoskeletal: Present: other (no edema) Results - Lab Results 09/30/17 05:16 09/30/17 05:11 Most recent lab results Calcium 8.9 mg/dL (8.4-10.2) 09/30/17 05:11 Magnesium 3.90 mg/dL (1.7-2.3) H 09/27/17 15:48 Assessment and Plan Impression: * Hypernatremia secondary to dehydration * Encephalopathy * PNA * Atrial fibrillation Plan: * Will change IVF from 1/4 NS to D5W as Na increased * Continue free H2O via NGT * Abx per primary team * Rate control per cardiology * Avoid potential nephrotoxins * Daily labs
[2017-09-30] MEDS ORDERED: D5W 1,000 ML IV SCH (10:00)
--- NOTE | 2017-09-30 10:55 | Progress Note ---
Assessment and Plan Assessment and plan: Sepsis. Etiology secondary to pneumonia. Continue IV antibiotics. Follow blood cultures. Trend lactic acid level. Right lower lobe pneumonia. Continue IV antibiotics as above. Serial CXR Atrial fibrillation with RVR. Patient reportedly had atrial fibrillation noted in the emergency room which is new onset. Patient with medical conversion with IV Cardizem that was later switched to by mouth. Acute renal failure/Acute kidney injury. Etiology secondary to sepsis +/- vasomotor nephropathy/dehydration. Continue to follow BMP. Check renal ultrasound. Renal consult. Hypernatremia. Hypotonic IVF per Nephrology. NG tube for free water and nutrition Elevated LFTs. Likely sec to sepsis. Toxic metabolic encephalopathy. Etiology secondary to above. Also, Consider embolic CVA given his afib. Neurology consultation. MRI when stable. Check EEG. Ammonia level normal Diabetes mellitus type 2, uncontrolled. Continue Accu-Cheks and sliding scale insulin. DVT prophylaxis. Add Lovenox. History Interval history: No new issues overnight. Patient remains confused and required restraints. Hospitalist Physical - Constitutional Vitals: Temp Pulse Resp BP Pulse Ox 97.6 F 80 20 154/110 99 09/30/17 07:40 09/30/17 07:40 09/30/17 07:40 09/30/17 07:40 09/30/17 07:40 General appearance: Present: no acute distress - EENT Eyes: Present: PERRL, EOM intact ENT: hearing intact, clear oral mucosa, dentition normal - Neck Neck: Present: supple, normal ROM - Respiratory Respiratory effort: normal Respiratory: bilateral: CTA - Cardiovascular Rhythm: regular Heart Sounds: Present: S1 & S2. Absent: gallop, rub - Extremities Extremities: no ischemia, No edema, Full ROM - Abdominal General gastrointestinal: soft, non-tender, non-distended, normal bowel sounds - Integumentary Integumentary: Present: clear, warm, dry - Neurologic Neurologic: CNII-XII intact, moves all extremities Results - Labs CBC & Chem 7: 09/30/17 05:16 09/30/17 05:11 Labs: Laboratory Last Values WBC 8.7 K/mm3 (4.5-11.0) 09/30/17 05:16 RBC 4.96 M/mm3 (3.65-5.03) 09/30/17 05:16 Hgb 15.7 gm/dl (11.8-15.2) H 09/30/17 05:16 Hct 48.1 % (35.5-45.6) H 09/30/17 05:16 MCV 97 fl (84-94) H 09/30/17 05:16 MCH 32 pg (28-32) 09/30/17 05:16 MCHC 33 % (32-34) 09/30/17 05:16 RDW 14.3 % (13.2-15.2) 09/30/17 05:16 Plt Count 300 K/mm3 (140-440) 09/30/17 05:16 Lymph % (Auto) 20.1 % (13.4-35.0) 09/30/17 05:16 [place] % (Auto) 9.1 % (0.0-7.3) H 09/30/17 05:16 Eos % (Auto) 1.0 % (0.0-4.3) 09/30/17 05:16 Baso % (Auto) 0.5 % (0.0-1.8) 09/30/17 05:16 Lymph # 1.7 K/mm3 (1.2-5.4) 09/30/17 05:16 [place] # 0.8 K/mm3 (0.0-0.8) 09/30/17 05:16 Eos # 0.1 K/mm3 (0.0-0.4) 09/30/17 05:16 Baso # 0.0 K/mm3 (0.0-0.1) 09/30/17 05:16 Seg Neutrophils % 69.3 % (40.0-70.0) 09/30/17 05:16 Seg Neutrophils # 6.0 K/mm3 (1.8-7.7) 09/30/17 05:16 D-Dimer 5685.50 ng/mlDDU (0-234) H 09/27/17 13:36 VBG pH 7.517 (7.320-7.420) H 09/27/17 12:59 Sodium 159 mmol/L (137-145) H 09/30/17 05:11 Potassium 4.5 mmol/L (3.6-5.0) 09/30/17 05:11 Chloride 123.4 mmol/L (98-107) H 09/30/17 05:11 Carbon Dioxide 22 mmol/L (22-30) 09/30/17 05:11 Anion Gap 18 mmol/L 09/30/17 05:11 BUN 30 mg/dL (9-20) H 09/30/17 05:11 Creatinine 0.7 mg/dL (0.8-1.5) L 09/30/17 05:11 Estimated GFR > 60 ml/min 09/30/17 05:11 BUN/Creatinine Ratio 43 % 09/30/17 05:11 Glucose 219 mg/dL (75-100) H 09/30/17 05:11 POC Glucose 235 (70-105) H 09/30/17 07:53 Hemoglobin A1c 9.3 % (4-6) H 09/27/17 16:12 Osmolality 357 Mosm/kg 09/29/17 16:47 Lactic Acid 1.70 mmol/L (0.7-2.0) 09/28/17 01:05 Uric Acid 5.8 mg/dL (3.5-7.6) 09/29/17 16:47 Calcium 8.9 mg/dL (8.4-10.2) 09/30/17 05:11 Magnesium 3.90 mg/dL (1.7-2.3) H 09/27/17 15:48 Total Bilirubin 1.50 mg/dL (0.1-1.2) H 09/30/17 05:11 AST 73 units/L (5-40) H 09/30/17 05:11 ALT 67 units/L (7-56) H 09/30/17 05:11 Alkaline Phosphatase 152 units/L (35-129) H 09/30/17 05:11 Ammonia 41.0 umol/L (25-60) 09/29/17 14:15 Total Creatine Kinase 682 units/L (55-170) H 09/27/17 12:59 Total Protein 6.8 g/dL (6.3-8.2) 09/30/17 05:11 Albumin 2.5 g/dL (3.9-5) L 09/30/17 05:11 Albumin/Globulin Ratio 0.6 % 09/30/17 05:11 TSH 1.080 mlU/mL (0.270-4.200) 09/28/17 12:07 Free T4 0.93 ng/dL (0.76-1.46) 09/27/17 15:48 Urine Color Yellow (Yellow) 09/27/17 13:10 Urine Turbidity Clear (Clear) 09/27/17 13:10 Urine pH 5.0 (5.0-7.0) 09/27/17 13:10 Ur Specific [place] 1.026 (1.003-1.030) 09/27/17 13:10 Urine Protein 100 mg/dl mg/dL (Negative) 09/27/17 13:10 Urine Glucose (UA) >=500 mg/dL (Negative) 09/27/17 13:10 Urine Ketones Neg mg/dL (Negative) 09/27/17 13:10 Urine Blood Lg (Negative) 09/27/17 13:10 Urine Nitrite Neg (Negative) 09/27/17 13:10 Urine Bilirubin Neg (Negative) 09/27/17 13:10 Urine Urobilinogen 2.0 mg/dL (<2.0) 09/27/17 13:10 Ur Leukocyte Esterase Neg (Negative) 09/27/17 13:10 Urine WBC (Auto) 7.0 /HPF (0.0-6.0) H 09/27/17 13:10 Urine RBC (Auto) 181.0 /HPF (0.0-6.0) 09/27/17 13:10 U Epithel Cells (Auto) < 1.0 /HPF (0-13.0) 09/27/17 13:10 Urine Mucus Few /HPF 09/27/17 13:10 Urine Opiates Screen Presumptive negative 09/27/17 13:10 Urine Methadone Screen Presumptive negative 09/27/17 13:10 Ur Barbiturates Screen Presumptive negative 09/27/17 13:10 Ur Phencyclidine Scrn Presumptive negative 09/27/17 13:10 Ur Amphetamines Screen Presumptive negative 09/27/17 13:10 U Benzodiazepines Scrn Presumptive negative 09/27/17 13:10 Urine Cocaine Screen Presumptive negative 09/27/17 13:10 U Marijuana (THC) Screen Presumptive negative 09/27/17 13:10 Drugs of Abuse Note Disclamer 09/27/17 13:10 Plasma/Serum Alcohol < 0.01 % (0-0.07) 09/27/17 12:52
--- NOTE | 2017-09-30 11:26 | Progress Note ---
Assessment and Plan Assessment: AMS / Encephalopathy Sepsis Possible CVA Atrial fibrillation with RVR - suspect new onset Acute renal insufficiency Hypertension hypernatermia Plan: Await echo. Initiate PO cardizem via DHT and d/c cardizem gtt. Hold off anticoagulation in view of AMS. Electrolyte management per nephrology. The patient has been seen in conjunction with Dr. Bruce Marroquin who agrees with the assessment and plan of care. Subjective Date of service: 09/30/17 Principal diagnosis: afib Interval history: pt resting in bed, lethargic, nonverbal. no apparent distress. tele reviewed - remains in Afib with RVR, HR 100s; infrequent 2-3 second pauses noted overnight. Objective Last Vital Signs Temp 97.6 F 09/30/17 07:40 Pulse 80 09/30/17 07:40 Resp 20 09/30/17 07:40 BP 154/110 09/30/17 07:40 Pulse Ox 99 09/30/17 07:40 - Physical Examination General: Other (lethargic, nonverbal) HEENT: Positive: PERRL, EOMI Neck: Positive: neck supple Cardiac: Positive: irregularly irregular, S1/S2 Neuro: Positive: Other (ams) Abdomen: Positive: Soft Extremities: Absent: edema - Labs and Meds Cardiac Enzymes 09/30/17 Range/Units 05:11 AST 73 H (5-40) units/L CBC 09/30/17 Range/Units 05:16 WBC 8.7 (4.5-11.0) K/mm3 RBC 4.96 (3.65-5.03) M/mm3 Hgb 15.7 H (11.8-15.2) gm/dl Hct 48.1 H (35.5-45.6) % Plt Count 300 (140-440) K/mm3 Lymph # 1.7 (1.2-5.4) K/mm3 [place] # 0.8 (0.0-0.8) K/mm3 Eos # 0.1 (0.0-0.4) K/mm3 Baso # 0.0 (0.0-0.1) K/mm3 Comprehensive Metabolic Panel 09/30/17 Range/Units 05:11 Sodium 159 H (137-145) mmol/L Potassium 4.5 (3.6-5.0) mmol/L Chloride 123.4 H (98-107) mmol/L Carbon Dioxide 22 (22-30) mmol/L BUN 30 H (9-20) mg/dL Creatinine 0.7 L (0.8-1.5) mg/dL Glucose 219 H (75-100) mg/dL Calcium 8.9 (8.4-10.2) mg/dL AST 73 H (5-40) units/L ALT 67 H (7-56) units/L Alkaline Phosphatase 152 H (35-129) units/L Total Protein 6.8 (6.3-8.2) g/dL Albumin 2.5 L (3.9-5) g/dL - Imaging and Cardiology Echo: pending
[2017-09-30] MEDS ORDERED: SIMPLE SYRUP FEEDTUBE PRN ×2 (12:13)
[2017-09-30] MEDS ORDERED: PANCREAZE DR 10,500 UNIT FEEDTUBE PRN (12:13)
[2017-09-30] MEDS ORDERED: SODIUM BICARBONATE FEEDTUBE PRN (12:13)
[2017-09-30] MEDS: CARDIZEM PO SCH ×2 (13:18→18:29)
[2017-09-30] MEDS: SODIUM CHLORIDE FLUSH SYRINGE 10 ML IV SCH ×2 (13:18→21:53)
[2017-09-30] MEDS: ZITHROMAX 500 MG in NACL 0.9% 250ML 250 ML IV SCH (18:36)
[2017-09-30] MEDS: ROCEPHIN/NS 2 GM/100 ML 2 GM/100 ML BAG IV SCH (21:51)
[2017-09-30] MEDS: LOVENOX SUB-Q SCH (21:51)
[2017-10-01 05:53] LABS: Basophils % (Auto) 0.6 % (0.0-1.8); Eosinophils # (Auto) 0.1 K/mm3 (0.0-0.4); Eosinophils % (Auto) 1.1 % (0.0-4.3); Hematocrit 48.2 % (35.5-45.6); Hemoglobin 15.7 gm/dl (11.8-15.2); Lymphocytes # (Auto) 1.6 K/mm3 (1.2-5.4); Lymphocytes % (Auto) 19.8 % (13.4-35.0); Mean Corpuscular HGB Conc 33 % (32-34); Mean Corpuscular Hemoglobin 32 pg (28-32); Mean Corpuscular Volume 97 fl (84-94); Monocytes # (Auto) 0.6 K/mm3 (0.0-0.8); Platelet Count 314 K/mm3 (140-440); Red Blood Count 4.96 M/mm3 (3.65-5.03); Red Cell Distribution Width 14.4 % (13.2-15.2)
[2017-10-01 06:20] LABS: Alanine Aminotransferase 76 units/L (7-56); Albumin 2.7 g/dL (3.9-5); BUN/Creatinine Ratio 30; Blood Urea Nitrogen 24 mg/dL (9-20); Calcium 9.2 mg/dL (8.4-10.2); Hemolysis Index 24
[2017-10-01] MEDS: CARDIZEM PO SCH ×4 (06:58→20:00)
[2017-10-01] MEDS: HumaLOG SUB-Q SCH ×4 (07:47→18:16)
--- NOTE | 2017-10-01 08:07 | Progress Note ---
Subjective Date of service: 10/01/17 Principal diagnosis: afib Interval history: more alert and BP noted no seizures imaging pending appears to be better Objective - Vital Sign Vital Signs - 12hr 09/30/17 09/30/17 10/01/17 20:57 21:45 01:32 Pulse Rate 58 L 67 Blood Pressure 176/106 O2 Sat by Pulse 98 98 Oximetry - Laboratory Findings CBC and BMP: 10/01/17 05:21 10/01/17 05:21 Abnormal Lab Findings: Abnormal Labs 09/27/17 09/27/17 09/27/17 12:47 12:47 12:54 WBC 13.3 H RBC 5.26 H Hgb 16.5 H Hct 50.1 H MCV 95 H Lymph % (Auto) 11.5 L [place] % (Auto) 7.7 H [place] # 1.0 H Seg Neutrophils % 80.4 H Seg Neutrophils # 10.7 H D-Dimer VBG pH Sodium 146 H Chloride BUN 79 H Creatinine Glucose 549 H* POC Glucose 392 H Hemoglobin A1c Lactic Acid Magnesium Total Bilirubin AST 90 H ALT 93 H Alkaline Phosphatase 163 H Total Creatine Kinase Albumin 3.0 L Urine WBC (Auto) 09/27/17 09/27/17 09/27/17 12:59 12:59 12:59 WBC RBC Hgb Hct MCV Lymph % (Auto) [place] % (Auto) [place] # Seg Neutrophils % Seg Neutrophils # D-Dimer VBG pH 7.517 H Sodium Chloride BUN Creatinine Glucose POC Glucose Hemoglobin A1c Lactic Acid 3.50 H* Magnesium Total Bilirubin AST ALT Alkaline Phosphatase Total Creatine Kinase 682 H Albumin Urine WBC (Auto) 09/27/17 09/27/17 09/27/17 13:10 13:36 15:48 WBC RBC Hgb Hct MCV Lymph % (Auto) [place] % (Auto) [place] # Seg Neutrophils % Seg Neutrophils # D-Dimer 5685.50 H VBG pH Sodium Chloride BUN Creatinine Glucose POC Glucose Hemoglobin A1c Lactic Acid Magnesium 3.90 H Total Bilirubin AST ALT Alkaline Phosphatase Total Creatine Kinase Albumin Urine WBC (Auto) 7.0 H 09/27/17 09/27/17 09/27/17 16:12 17:54 18:43 WBC RBC Hgb Hct MCV Lymph % (Auto) [place] % (Auto) [place] # Seg Neutrophils % Seg Neutrophils # D-Dimer VBG pH Sodium Chloride BUN Creatinine Glucose POC Glucose Hemoglobin A1c 9.3 H Lactic Acid 2.70 H* 3.40 H* Magnesium Total Bilirubin AST ALT Alkaline Phosphatase Total Creatine Kinase Albumin Urine WBC (Auto) 09/27/17 09/27/17 09/27/17 19:16 21:10 23:44 WBC RBC Hgb Hct MCV Lymph % (Auto) [place] % (Auto) [place] # Seg Neutrophils % Seg Neutrophils # D-Dimer VBG pH Sodium Chloride BUN Creatinine Glucose POC Glucose 370 H Hemoglobin A1c Lactic Acid 2.60 H* 2.40 H* Magnesium Total Bilirubin AST ALT Alkaline Phosphatase Total Creatine Kinase Albumin Urine WBC (Auto) 09/28/17 09/28/17 09/28/17 01:21 06:20 12:02 WBC RBC Hgb Hct MCV Lymph % (Auto) [place] % (Auto) [place] # Seg Neutrophils % Seg Neutrophils # D-Dimer VBG pH Sodium Chloride BUN Creatinine Glucose POC Glucose 226 H 228 H 278 H Hemoglobin A1c Lactic Acid Magnesium Total Bilirubin AST ALT Alkaline Phosphatase Total Creatine Kinase Albumin Urine WBC (Auto) 09/28/17 09/28/17 09/29/17 17:47 22:16 06:40 WBC RBC Hgb Hct MCV Lymph % (Auto) [place] % (Auto) [place] # Seg Neutrophils % Seg Neutrophils # D-Dimer VBG pH Sodium Chloride BUN Creatinine Glucose POC Glucose 316 H 214 H 227 H Hemoglobin A1c Lactic Acid Magnesium Total Bilirubin AST ALT Alkaline Phosphatase Total Creatine Kinase Albumin Urine WBC (Auto) 09/29/17 09/29/17 09/29/17 07:13 07:13 12:17 WBC 12.0 H RBC Hgb 15.4 H Hct 47.6 H MCV 97 H Lymph % (Auto) [place] % (Auto) [place] # 0.9 H Seg Neutrophils % 76.8 H Seg Neutrophils # 9.2 H D-Dimer VBG pH Sodium 158 H D Chloride 120.2 H BUN 38 H Creatinine Glucose 205 H POC Glucose 283 H Hemoglobin A1c Lactic Acid Magnesium Total Bilirubin AST 80 H ALT 69 H Alkaline Phosphatase 143 H Total Creatine Kinase Albumin 2.7 L Urine WBC (Auto) 09/29/17 09/29/17 09/30/17 16:20 21:12 05:11 WBC RBC Hgb Hct MCV Lymph % (Auto) [place] % (Auto) [place] # Seg Neutrophils % Seg Neutrophils # D-Dimer VBG pH Sodium 159 H Chloride 123.4 H BUN 30 H Creatinine 0.7 L Glucose 219 H POC Glucose 279 H 204 H Hemoglobin A1c Lactic Acid Magnesium Total Bilirubin 1.50 H AST 73 H ALT 67 H Alkaline Phosphatase 152 H Total Creatine Kinase Albumin 2.5 L Urine WBC (Auto) 09/30/17 09/30/17 09/30/17 05:16 07:53 13:06 WBC RBC Hgb 15.7 H Hct 48.1 H MCV 97 H Lymph % (Auto) [place] % (Auto) 9.1 H [place] # Seg Neutrophils % Seg Neutrophils # D-Dimer VBG pH Sodium Chloride BUN Creatinine Glucose POC Glucose 235 H 280 H Hemoglobin A1c Lactic Acid Magnesium Total Bilirubin AST ALT Alkaline Phosphatase Total Creatine Kinase Albumin Urine WBC (Auto) 09/30/17 10/01/17 10/01/17 18:22 00:23 05:21 WBC RBC Hgb Hct MCV Lymph % (Auto) [place] % (Auto) [place] # Seg Neutrophils % Seg Neutrophils # D-Dimer VBG pH Sodium 156 H Chloride 117.5 H BUN 24 H Creatinine Glucose 289 H POC Glucose 264 H 220 H Hemoglobin A1c Lactic Acid Magnesium Total Bilirubin 1.90 H AST 77 H ALT 76 H Alkaline Phosphatase 177 H Total Creatine Kinase Albumin 2.7 L Urine WBC (Auto) 10/01/17 05:21 WBC RBC Hgb 15.7 H Hct 48.2 H MCV 97 H Lymph % (Auto) [place] % (Auto) 8.0 H [place] # Seg Neutrophils % 70.5 H Seg Neutrophils # D-Dimer VBG pH Sodium Chloride BUN Creatinine Glucose POC Glucose Hemoglobin A1c Lactic Acid Magnesium Total Bilirubin AST ALT Alkaline Phosphatase Total Creatine Kinase Albumin Urine WBC (Auto)
--- NOTE | 2017-10-01 08:53 | Progress Note ---
Assessment and Plan Impression: * Hypernatremia secondary to dehydration * Encephalopathy * PNA * Atrial fibrillation Plan: * Continue D5W IV - increase rate to 125ml/hour * Continue free H2O via NGT * Abx per primary team * Rate control per cardiology * Avoid potential nephrotoxins * Daily labs Subjective Date of service: 10/01/17 Principal diagnosis: afib Interval history: No acute events overnight Objective - Vital Signs Vital signs: Vital Signs - 12hr 09/30/17 09/30/17 10/01/17 20:57 21:45 01:32 Temperature Pulse Rate 58 L 67 Respiratory Rate Blood Pressure 176/106 O2 Sat by Pulse 98 98 Oximetry 10/01/17 10/01/17 10/01/17 04:55 04:56 07:46 Temperature 98.1 F Pulse Rate 74 72 76 Respiratory 18 20 Rate Blood Pressure 178/109 182/106 O2 Sat by Pulse 93 93 95 Oximetry - General Appearance General appearance: well-developed, well-nourished EENT: other Cardiology: regular, S1S2 Gastrointestinal: normal Integumentary: no rash Neurologic: confused, other (more alert this am) Psychiatric: cooperative - Lab 10/01/17 05:21 10/01/17 05:21 Most recent lab results Calcium 9.2 mg/dL (8.4-10.2) 10/01/17 05:21 Magnesium 3.90 mg/dL (1.7-2.3) H 09/27/17 15:48
[2017-10-01] MEDS ORDERED: D5W 1,000 ML IV SCH (09:00)
--- NOTE | 2017-10-01 09:39 | XRay Report ---
AP ABDOMEN: HISTORY: Dobbhoff placement. The distal tip of the Dobbhoff tube terminates in the fundus of the stomach. The abdominal gas pattern is unremarkable. No masses or organomegaly is identified and there is no gross evidence of free air or fluid. Large calcification overlying the left kidney shadow measures 2 cm which is unchanged. IMPRESSION: The feeding tube terminates in the fundus of the stomach. Left nephrolithiasis.
--- NOTE | 2017-10-01 11:44 | Progress Note ---
Assessment and Plan Assessment: AMS / Encephalopathy Sepsis Possible CVA Atrial fibrillation with RVR --> SR; suspect new onset Acute renal insufficiency Hypertension hypernatermia Plan: Echo reviewed - borderline LVH, EF 55-60%, impaired relaxation, mild MR. Pt has converted to NSR. Optimize anti-hypertensive regimen - increase cardizem. Hold off anticoagulation in view of AMS. Electrolyte management per nephrology. The patient has been seen in conjunction with Dr. Bruce Marroquin who agrees with the assessment and plan of care. Subjective Date of service: 10/01/17 Principal diagnosis: afib Interval history: pt resting in bed, lethargic, nonverbal. no apparent distress. tele reviewed - has converted to NSR. Had infrequent 2-2.5 second pauses overnight while in AFib , no pauses since conversion to NSR. Objective Last Vital Signs Temp 98.1 F 10/01/17 07:46 Pulse 76 10/01/17 07:46 Resp 20 10/01/17 07:46 BP 182/106 10/01/17 07:46 Pulse Ox 94 10/01/17 09:49 - Physical Examination General: Other (lethargic, nonverbal) HEENT: Positive: PERRL, EOMI Neck: Positive: neck supple Cardiac: Positive: Reg Rate and Rhythm, S1/S2 Lungs: Positive: clear to auscultation Neuro: Positive: Other (ams) Abdomen: Positive: Soft Extremities: Absent: edema - Labs and Meds Cardiac Enzymes 10/01/17 Range/Units 05:21 AST 77 H (5-40) units/L CBC 10/01/17 Range/Units 05:21 WBC 8.0 (4.5-11.0) K/mm3 RBC 4.96 (3.65-5.03) M/mm3 Hgb 15.7 H (11.8-15.2) gm/dl Hct 48.2 H (35.5-45.6) % Plt Count 314 (140-440) K/mm3 Lymph # 1.6 (1.2-5.4) K/mm3 [place] # 0.6 (0.0-0.8) K/mm3 Eos # 0.1 (0.0-0.4) K/mm3 Baso # 0.0 (0.0-0.1) K/mm3 Comprehensive Metabolic Panel 07/17/18 Range/Units 05:21 Sodium 156 H (137-145) mmol/L Potassium 4.4 (3.6-5.0) mmol/L Chloride 117.5 H (98-107) mmol/L Carbon Dioxide 27 (22-30) mmol/L BUN 24 H (9-20) mg/dL Creatinine 0.8 (0.8-1.5) mg/dL Glucose 289 H (75-100) mg/dL Calcium 9.2 (8.4-10.2) mg/dL AST 77 H (5-40) units/L ALT 76 H (7-56) units/L Alkaline Phosphatase 177 H (35-129) units/L Total Protein 7.1 (6.3-8.2) g/dL Albumin 2.7 L (3.9-5) g/dL - Imaging and Cardiology Echo: pending
[2017-10-01] MEDS: SODIUM CHLORIDE FLUSH SYRINGE 10 ML IV SCH ×2 (12:31→22:20)
--- NOTE | 2017-10-01 16:04 | Progress Note ---
Assessment and Plan Assessment and plan: Sepsis. Etiology secondary to pneumonia. Continue IV antibiotics. Blood culture negative so far. Lactic acid level is normal now Right lower lobe pneumonia. Continue IV antibiotics as above. Atrial fibrillation with RVR - Patient is on rate control - Noncritical admissions because of altered mental status Acute renal failure/Acute kidney injury. Etiology secondary to sepsis +/- vasomotor nephropathy/dehydration. Continue to follow BMP. Check renal ultrasound. Renal consult. - Resolved Hypernatremia. Hypotonic IVF per Nephrology. Increase free water intake. Elevated LFTs. Likely sec to sepsis. Toxic metabolic encephalopathy. Etiology secondary to above. Also, Consider embolic CVA given his afib. Neurology consultation. MRI when stable. Check EEG. Ammonia level normal Diabetes mellitus type 2, uncontrolled. Continue Accu-Cheks and sliding scale insulin. DVT prophylaxis. Add Lovenox. History Interval history: Patient was seen and developed this morning, patient was alert and oriented 2. Hospitalist Physical - Physical exam Narrative exam: Not in cardiopulmonary distress. Dry mouth. The patient appeared well nourished and normally developed. Vital signs as documented. Head exam is unremarkable. No scleral icterus . Neck is without jugular venous distension, thyromegaly, or carotid bruits. Lungs are clear to auscultation. Cardiac exam reveals regular rate and Rhythm. First and second heart sounds normal. No murmurs, rubs or gallops. Abdominal exam reveals normal bowel sounds, no masses, no organomegaly and no aortic enlargement. Extremities are nonedematous and both femoral and pedal pulses are normal. 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 No focal weakness. - Constitutional Vitals: Temp Pulse Resp BP Pulse Ox 97.9 F 70 20 172/103 96 10/01/17 10:57 10/01/17 10:57 10/01/17 10:57 10/01/17 10:57 10/01/17 10:57 General appearance: Present: no acute distress Results - Labs CBC & Chem 7: 10/01/17 05:21 10/01/17 05:21 Labs: Laboratory Last Values WBC 8.0 K/mm3 (4.5-11.0) 10/01/17 05:21 RBC 4.96 M/mm3 (3.65-5.03) 10/01/17 05:21 Hgb 15.7 gm/dl (11.8-15.2) H 10/01/17 05:21 Hct 48.2 % (35.5-45.6) H 10/01/17 05:21 MCV 97 fl (84-94) H 10/01/17 05:21 MCH 32 pg (28-32) 10/01/17 05:21 MCHC 33 % (32-34) 10/01/17 05:21 RDW 14.4 % (13.2-15.2) 10/01/17 05:21 Plt Count 314 K/mm3 (140-440) 10/01/17 05:21 Lymph % (Auto) 19.8 % (13.4-35.0) 10/01/17 05:21 [place] % (Auto) 8.0 % (0.0-7.3) H 10/01/17 05:21 Eos % (Auto) 1.1 % (0.0-4.3) 10/01/17 05:21 Baso % (Auto) 0.6 % (0.0-1.8) 10/01/17 05:21 Lymph # 1.6 K/mm3 (1.2-5.4) 10/01/17 05:21 [place] # 0.6 K/mm3 (0.0-0.8) 10/01/17 05:21 Eos # 0.1 K/mm3 (0.0-0.4) 10/01/17 05:21 Baso # 0.0 K/mm3 (0.0-0.1) 10/01/17 05:21 Seg Neutrophils % 70.5 % (40.0-70.0) H 10/01/17 05:21 Seg Neutrophils # 5.6 K/mm3 (1.8-7.7) 10/01/17 05:21 D-Dimer 5685.50 ng/mlDDU (0-234) H 09/27/17 13:36 VBG pH 7.517 (7.320-7.420) H 09/27/17 12:59 Sodium 156 mmol/L (137-145) H 10/01/17 05:21 Potassium 4.4 mmol/L (3.6-5.0) 10/01/17 05:21 Chloride 117.5 mmol/L (98-107) H 10/01/17 05:21 Carbon Dioxide 27 mmol/L (22-30) 10/01/17 05:21 Anion Gap 16 mmol/L 10/01/17 05:21 BUN 24 mg/dL (9-20) H 10/01/17 05:21 Creatinine 0.8 mg/dL (0.8-1.5) 10/01/17 05:21 Estimated GFR > 60 ml/min 10/01/17 05:21 BUN/Creatinine Ratio 30 % 10/01/17 05:21 Glucose 289 mg/dL (75-100) H 10/01/17 05:21 POC Glucose 311 (70-105) H 10/01/17 11:02 Hemoglobin A1c 9.3 % (4-6) H 09/27/17 16:12 Osmolality 357 Mosm/kg 09/29/17 16:47 Lactic Acid 1.70 mmol/L (0.7-2.0) 09/28/17 01:05 Uric Acid 5.8 mg/dL (3.5-7.6) 09/29/17 16:47 Calcium 9.2 mg/dL (8.4-10.2) 10/01/17 05:21 Magnesium 3.90 mg/dL (1.7-2.3) H 09/27/17 15:48 Total Bilirubin 1.90 mg/dL (0.1-1.2) H 10/01/17 05:21 AST 77 units/L (5-40) H 10/01/17 05:21 ALT 76 units/L (7-56) H 10/01/17 05:21 Alkaline Phosphatase 177 units/L (35-129) H 10/01/17 05:21 Ammonia 41.0 umol/L (25-60) 09/29/17 14:15 Total Creatine Kinase 682 units/L (55-170) H 09/27/17 12:59 Total Protein 7.1 g/dL (6.3-8.2) 10/01/17 05:21 Albumin 2.7 g/dL (3.9-5) L 10/01/17 05:21 Albumin/Globulin Ratio 0.6 % 10/01/17 05:21 TSH 1.080 mlU/mL (0.270-4.200) 09/28/17 12:07 Free T4 0.93 ng/dL (0.76-1.46) 09/27/17 15:48 Urine Color Yellow (Yellow) 09/27/17 13:10 Urine Turbidity Clear (Clear) 09/27/17 13:10 Urine pH 5.0 (5.0-7.0) 09/27/17 13:10 Ur Specific [place] 1.026 (1.003-1.030) 09/27/17 13:10 Urine Protein 100 mg/dl mg/dL (Negative) 09/27/17 13:10 Urine Glucose (UA) >=500 mg/dL (Negative) 09/27/17 13:10 Urine Ketones Neg mg/dL (Negative) 09/27/17 13:10 Urine Blood Lg (Negative) 09/27/17 13:10 Urine Nitrite Neg (Negative) 09/27/17 13:10 Urine Bilirubin Neg (Negative) 09/27/17 13:10 Urine Urobilinogen 2.0 mg/dL (<2.0) 09/27/17 13:10 Ur Leukocyte Esterase Neg (Negative) 09/27/17 13:10 Urine WBC (Auto) 7.0 /HPF (0.0-6.0) H 09/27/17 13:10 Urine RBC (Auto) 181.0 /HPF (0.0-6.0) 09/27/17 13:10 U Epithel Cells (Auto) < 1.0 /HPF (0-13.0) 09/27/17 13:10 Urine Mucus Few /HPF 09/27/17 13:10 Urine Opiates Screen Presumptive negative 09/27/17 13:10 Urine Methadone Screen Presumptive negative 09/27/17 13:10 Ur Barbiturates Screen Presumptive negative 09/27/17 13:10 Ur Phencyclidine Scrn Presumptive negative 09/27/17 13:10 Ur Amphetamines Screen Presumptive negative 09/27/17 13:10 U Benzodiazepines Scrn Presumptive negative 09/27/17 13:10 Urine Cocaine Screen Presumptive negative 09/27/17 13:10 U Marijuana (THC) Screen Presumptive negative 09/27/17 13:10 Drugs of Abuse Note Disclamer 09/27/17 13:10 Plasma/Serum Alcohol < 0.01 % (0-0.07) 09/27/17 12:52
[2017-10-01] MEDS: ZITHROMAX 500 MG in NACL 0.9% 250ML 250 ML IV SCH (18:12)
--- NOTE | 2017-10-01 18:50 | XRay Report ---
FINAL REPORT PROCEDURE: XR ABDOMEN 1V AP TECHNIQUE: Abdominal radiograph, single supine AP view. HISTORY: Verify Dobhoff placement. COMPARISON: Radiograph dated 09/29/2017. FINDINGS: Bowel gas pattern:Moderately air-filled distended bowel, both small and large bowel but predominantly large bowel. Masses or calcifications:2 x 1.1 cm calcification overlying the expected location of the left kidney, similar to prior exam. Bony structures:Mild degenerative changes of the spine. Other:Enteric tube overlies expected location of the stomach, tip pointing to the left. Overlying monitoring leads. Moderate cardiomegaly. Perihilar and bibasilar opacities. IMPRESSION: Enteric tube overlies expected location of the stomach, tip pointing to the left. Moderately air-filled distended small and large bowel, predominantly large bowel. Consider ileus. Consider attention on followup radiographs if there is concern for obstruction. Moderate cardiomegaly. Perihilar and bibasilar opacities, consider correlation with chest radiograph.
[2017-10-01] MEDS: ROCEPHIN/NS 2 GM/100 ML 2 GM/100 ML BAG IV SCH (20:00)
[2017-10-01] MEDS: LOVENOX SUB-Q SCH (22:09)
[2017-10-01] MEDS: LANTUS SUB-Q SCH (22:09)
[2017-10-02] MEDS: HumaLOG SUB-Q SCH ×5 (07:39→23:30)
[2017-10-02 08:06] LABS: Alanine Aminotransferase 111 units/L (7-56); Albumin 2.6 g/dL (3.9-5); BUN/Creatinine Ratio 27; Blood Urea Nitrogen 19 mg/dL (9-20); Calcium 9.1 mg/dL (8.4-10.2); Hemolysis Index 20
[2017-10-02] MEDS: CARDIZEM PO SCH ×3 (08:43→22:06)
[2017-10-02] MEDS: SODIUM CHLORIDE FLUSH SYRINGE 10 ML IV SCH ×3 (08:45→22:08)
--- NOTE | 2017-10-02 11:09 | Fluoroscopy Report ---
MODIFIED BARIUM SWALLOW History: dysphagia. Findings: Video radiography was provided by the radiologist for speech therapy to assess the swallowing mechanism. 1 fluoroscopic image was captured. Impression: Successful modified barium swallow.
--- NOTE | 2017-10-02 13:04 | Progress Note ---
Assessment and Plan Impression: * Hypernatremia secondary to dehydration * Encephalopathy * PNA * Atrial fibrillation Plan: * Continue D5W IV - 125ml/hour * Continue free H2O via NGT * Abx per primary team * Rate control per cardiology * Avoid potential nephrotoxins * Daily labs Subjective Date of service: 10/02/17 Principal diagnosis: afib Interval history: Patient has no complaints. Mental status continues to improve. Objective - Vital Signs Vital signs: Vital Signs - 12hr 10/02/17 10/02/17 10/02/17 01:24 06:29 08:22 Temperature 97.8 F 97.7 F Pulse Rate 58 L 68 Respiratory 16 16 Rate Blood Pressure 160/102 175/104 Blood Pressure [Left] O2 Sat by Pulse 100 98 99 Oximetry 10/02/17 10/02/17 08:43 09:12 Temperature 98.1 F Pulse Rate 66 66 Respiratory 16 Rate Blood Pressure 157/101 Blood Pressure 157/101 [Left] O2 Sat by Pulse 100 Oximetry - General Appearance General appearance: well-developed, well-nourished EENT: ATNC Respiratory: Present: Clear to Ascultation Cardiology: regular, S1S2 Gastrointestinal: normal, no tenderness, no distended Integumentary: warm and dry Neurologic: alert and oriented x3 Musculoskeletal: other (no edema) Psychiatric: cooperative - Lab 10/01/17 05:21 10/02/17 05:58 Most recent lab results Calcium 9.1 mg/dL (8.4-10.2) 10/02/17 05:58 Magnesium 3.90 mg/dL (1.7-2.3) H 09/27/17 15:48
--- NOTE | 2017-10-02 13:06 | Progress Note ---
Assessment and Plan Assessment: AMS / Encephalopathy Sepsis Possible CVA Atrial fibrillation with RVR --> SR; suspect new onset Acute renal insufficiency Hypertension hypernatermia Plan: Pt remains in NSR. Cont cardizem. Hold off anticoagulation in view of AMS. Electrolyte management per nephrology. Currently stable cardiac status. Nothing further to add from cardiac perspective at this time. Will follow on as needed basis. The patient has been seen in conjunction with Dr. Estes who agrees with the assessment and plan of care. Subjective Date of service: 10/02/17 Principal diagnosis: afib Interval history: pt resting in bed, lethargic, nonverbal. no apparent distress. tele reviewed - remains in NSR. Objective Last Vital Signs Temp 98.1 F 10/02/17 09:12 Pulse 66 10/02/17 09:12 Resp 16 10/02/17 09:12 BP 157/101 10/02/17 09:12 Pulse Ox 100 10/02/17 09:12 - Physical Examination General: Other (lethargic, nonverbal) HEENT: Positive: PERRL, EOMI Neck: Positive: neck supple Cardiac: Positive: Reg Rate and Rhythm, S1/S2 Lungs: Positive: Decreased Breath Sounds Neuro: Positive: Other (ams) Abdomen: Positive: Soft Extremities: Absent: edema - Labs and Meds Cardiac Enzymes 10/02/17 Range/Units 05:58 AST 127 H (5-40) units/L Comprehensive Metabolic Panel 10/02/17 Range/Units 05:58 Sodium 151 H (137-145) mmol/L Potassium 3.9 (3.6-5.0) mmol/L Chloride 113.3 H (98-107) mmol/L Carbon Dioxide 28 (22-30) mmol/L BUN 19 (9-20) mg/dL Creatinine 0.7 L (0.8-1.5) mg/dL Glucose 160 H (75-100) mg/dL Calcium 9.1 (8.4-10.2) mg/dL AST 127 H (5-40) units/L ALT 111 H (7-56) units/L Alkaline Phosphatase 182 H (35-129) units/L Total Protein 6.7 (6.3-8.2) g/dL Albumin 2.6 L (3.9-5) g/dL - Imaging and Cardiology Echo: report reviewed (EF 55-60%, borderline LVH, impaired relaxation, mild MR. ) - Telemetry EKG Rhythm: Sinus Rhythm
--- NOTE | 2017-10-02 15:31 | Progress Note ---
Assessment and Plan Assessment and plan: Sepsis. Etiology secondary to pneumonia. Continue IV antibiotics. Blood culture negative so far. Lactic acid level is normal now Right lower lobe pneumonia. Continue IV antibiotics as above. Atrial fibrillation with RVR - Patient is on rate control - Noncritical admissions because of altered mental status Acute renal failure/Acute kidney injury. Etiology secondary to sepsis +/- vasomotor nephropathy/dehydration. Continue to follow BMP. Check renal ultrasound. Renal consult. - Resolved Hypernatremia. D5w IVF and increase free water intake. Elevated LFTs. Likely sec to sepsis. Toxic metabolic encephalopathy. Etiology secondary to above. Also, Consider embolic CVA given his afib. Neurology consultation. MRI when stable. Check EEG. Ammonia level normal Diabetes mellitus type 2, uncontrolled. Continue Accu-Cheks and sliding scale insulin. DVT prophylaxis. Add Lovenox. History Interval history: Patient was seen and developed this morning, patient was alert and oriented 3. Hospitalist Physical - Physical exam Narrative exam: Not in cardiopulmonary distress. Dry mouth. The patient appeared well nourished and normally developed. Vital signs as documented. Head exam is unremarkable. No scleral icterus . Neck is without jugular venous distension, thyromegaly, or carotid bruits. Lungs are clear to auscultation. Cardiac exam reveals regular rate and Rhythm. First and second heart sounds normal. No murmurs, rubs or gallops. Abdominal exam reveals normal bowel sounds, no masses, no organomegaly and no aortic enlargement. Extremities are nonedematous and both femoral and pedal pulses are normal. 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 No focal weakness. - Constitutional Vitals: Temp Pulse Resp BP Pulse Ox 97.6 F 62 16 170/95 100 10/02/17 12:09 10/02/17 13:06 10/02/17 12:09 10/02/17 13:06 10/02/17 12:09 General appearance: Present: no acute distress Results - Labs CBC & Chem 7: 10/01/17 05:21 10/02/17 05:58 Labs: Laboratory Last Values WBC 8.0 K/mm3 (4.5-11.0) 10/01/17 05:21 RBC 4.96 M/mm3 (3.65-5.03) 10/01/17 05:21 Hgb 15.7 gm/dl (11.8-15.2) H 10/01/17 05:21 Hct 48.2 % (35.5-45.6) H 10/01/17 05:21 MCV 97 fl (84-94) H 10/01/17 05:21 MCH 32 pg (28-32) 10/01/17 05:21 MCHC 33 % (32-34) 10/01/17 05:21 RDW 14.4 % (13.2-15.2) 10/01/17 05:21 Plt Count 314 K/mm3 (140-440) 10/01/17 05:21 Lymph % (Auto) 19.8 % (13.4-35.0) 10/01/17 05:21 [place] % (Auto) 8.0 % (0.0-7.3) H 10/01/17 05:21 Eos % (Auto) 1.1 % (0.0-4.3) 10/01/17 05:21 Baso % (Auto) 0.6 % (0.0-1.8) 10/01/17 05:21 Lymph # 1.6 K/mm3 (1.2-5.4) 10/01/17 05:21 [place] # 0.6 K/mm3 (0.0-0.8) 10/01/17 05:21 Eos # 0.1 K/mm3 (0.0-0.4) 10/01/17 05:21 Baso # 0.0 K/mm3 (0.0-0.1) 10/01/17 05:21 Seg Neutrophils % 70.5 % (40.0-70.0) H 10/01/17 05:21 Seg Neutrophils # 5.6 K/mm3 (1.8-7.7) 10/01/17 05:21 D-Dimer 5685.50 ng/mlDDU (0-234) H 09/27/17 13:36 VBG pH 7.517 (7.320-7.420) H 09/27/17 12:59 Sodium 151 mmol/L (137-145) H 10/02/17 05:58 Potassium 3.9 mmol/L (3.6-5.0) 10/02/17 05:58 Chloride 113.3 mmol/L (98-107) H 10/02/17 05:58 Carbon Dioxide 28 mmol/L (22-30) 10/02/17 05:58 Anion Gap 14 mmol/L 10/02/17 05:58 BUN 19 mg/dL (9-20) 10/02/17 05:58 Creatinine 0.7 mg/dL (0.8-1.5) L 10/02/17 05:58 Estimated GFR > 60 ml/min 10/02/17 05:58 BUN/Creatinine Ratio 27 % 10/02/17 05:58 Glucose 160 mg/dL (75-100) H 10/02/17 05:58 POC Glucose 307 (70-105) H 10/02/17 12:23 Hemoglobin A1c 9.3 % (4-6) H 09/27/17 16:12 Osmolality 357 Mosm/kg 09/29/17 16:47 Lactic Acid 1.70 mmol/L (0.7-2.0) 09/28/17 01:05 Uric Acid 5.8 mg/dL (3.5-7.6) 09/29/17 16:47 Calcium 9.1 mg/dL (8.4-10.2) 10/02/17 05:58 Magnesium 3.90 mg/dL (1.7-2.3) H 09/27/17 15:48 Total Bilirubin 1.30 mg/dL (0.1-1.2) H 10/02/17 05:58 AST 127 units/L (5-40) H 10/02/17 05:58 ALT 111 units/L (7-56) H 10/02/17 05:58 Alkaline Phosphatase 182 units/L (35-129) H 10/02/17 05:58 Ammonia 41.0 umol/L (25-60) 09/29/17 14:15 Total Creatine Kinase 682 units/L (55-170) H 09/27/17 12:59 Total Protein 6.7 g/dL (6.3-8.2) 10/02/17 05:58 Albumin 2.6 g/dL (3.9-5) L 10/02/17 05:58 Albumin/Globulin Ratio 0.6 % 10/02/17 05:58 TSH 1.080 mlU/mL (0.270-4.200) 09/28/17 12:07 Free T4 0.93 ng/dL (0.76-1.46) 09/27/17 15:48 Urine Color Yellow (Yellow) 09/27/17 13:10 Urine Turbidity Clear (Clear) 09/27/17 13:10 Urine pH 5.0 (5.0-7.0) 09/27/17 13:10 Ur Specific [place] 1.026 (1.003-1.030) 09/27/17 13:10 Urine Protein 100 mg/dl mg/dL (Negative) 09/27/17 13:10 Urine Glucose (UA) >=500 mg/dL (Negative) 09/27/17 13:10 Urine Ketones Neg mg/dL (Negative) 09/27/17 13:10 Urine Blood Lg (Negative) 09/27/17 13:10 Urine Nitrite Neg (Negative) 09/27/17 13:10 Urine Bilirubin Neg (Negative) 09/27/17 13:10 Urine Urobilinogen 2.0 mg/dL (<2.0) 09/27/17 13:10 Ur Leukocyte Esterase Neg (Negative) 09/27/17 13:10 Urine WBC (Auto) 7.0 /HPF (0.0-6.0) H 09/27/17 13:10 Urine RBC (Auto) 181.0 /HPF (0.0-6.0) 09/27/17 13:10 U Epithel Cells (Auto) < 1.0 /HPF (0-13.0) 09/27/17 13:10 Urine Mucus Few /HPF 09/27/17 13:10 Urine Opiates Screen Presumptive negative 09/27/17 13:10 Urine Methadone Screen Presumptive negative 09/27/17 13:10 Ur Barbiturates Screen Presumptive negative 09/27/17 13:10 Ur Phencyclidine Scrn Presumptive negative 09/27/17 13:10 Ur Amphetamines Screen Presumptive negative 09/27/17 13:10 U Benzodiazepines Scrn Presumptive negative 09/27/17 13:10 Urine Cocaine Screen Presumptive negative 09/27/17 13:10 U Marijuana (THC) Screen Presumptive negative 09/27/17 13:10 Drugs of Abuse Note Disclamer 09/27/17 13:10 Plasma/Serum Alcohol < 0.01 % (0-0.07) 09/27/17 12:52
[2017-10-02] MEDS: ZITHROMAX 500 MG in NACL 0.9% 250ML 250 ML IV SCH (17:28)
[2017-10-02] MEDS: LOVENOX SUB-Q SCH (22:07)
[2017-10-02] MEDS: D5W 1,000 ML IV SCH (22:08)
[2017-10-02] MEDS: ROCEPHIN/NS 2 GM/100 ML 2 GM/100 ML BAG IV SCH (22:08)
[2017-10-02] MEDS: LANTUS SUB-Q SCH (23:30)
[2017-10-03] MEDS: HumaLOG SUB-Q SCH ×4 (06:48→23:57)
[2017-10-03 06:53] LABS: BUN/Creatinine Ratio 25; Blood Urea Nitrogen 15 mg/dL (9-20); Calcium 8.2 mg/dL (8.4-10.2); Hemolysis Index 6
--- NOTE | 2017-10-03 09:04 | XRay Report ---
ABDOMINAL SERIES: History: Ileus, pneumonia. Single view of the chest demonstrates clear lungs and borderline heart size. Supine and upright views of the abdomen demonstrate a relatively normal bowel gas pattern. No evidence for abnormal dilatation or large air-fluid levels. There is residual contrast agent and gas throughout the colon. Left nephrolithiasis is again noted. The feeding tube has been removed. IMPRESSION: No evidence for pneumonia. Near normal bowel gas pattern. Probable resolving ileus.
[2017-10-03] MEDS: CARDIZEM PO SCH ×3 (10:17→22:26)
[2017-10-03] MEDS: SODIUM CHLORIDE FLUSH SYRINGE 10 ML IV SCH ×2 (10:19→22:28)
--- NOTE | 2017-10-03 13:53 | Progress Note ---
Assessment and Plan Assessment and plan: Sepsis. Etiology secondary to pneumonia. Continue IV antibiotics. Blood culture negative so far. Lactic acid level is normal now Right lower lobe pneumonia. Continue IV antibiotics as above. Atrial fibrillation with RVR - Patient is on rate control - Noncritical admissions because of altered mental status Acute renal failure/Acute kidney injury. Etiology secondary to sepsis +/- vasomotor nephropathy/dehydration. Continue to follow BMP. Check renal ultrasound. Renal consult. - Resolved Hypernatremia. D5w IVF and increase free water intake. Elevated LFTs. Likely sec to sepsis. Toxic metabolic encephalopathy. Etiology secondary to above. Also, Consider embolic CVA given his afib. Neurology consultation. MRI when stable. Check EEG. Ammonia level normal Diabetes mellitus type 2, uncontrolled. Continue Accu-Cheks and sliding scale insulin. Ileus - Resolving - patient started on liquid diet DVT prophylaxis. on Lovenox. History Interval history: Patient was seen and developed this morning, patient was alert and oriented 3. Patient passed gas yesterday, denied abdominal pain. Hospitalist Physical - Physical exam Narrative exam: Not in cardiopulmonary distress. Dry mouth. The patient appeared well nourished and normally developed. Vital signs as documented. Head exam is unremarkable. No scleral icterus . Neck is without jugular venous distension, thyromegaly, or carotid bruits. Lungs are clear to auscultation. Cardiac exam reveals regular rate and Rhythm. First and second heart sounds normal. No murmurs, rubs or gallops. Abdominal exam reveals normal bowel sounds, no masses, no organomegaly and no aortic enlargement. Extremities are nonedematous and both femoral and pedal pulses are normal. 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 No focal weakness. - Constitutional Vitals: Temp Pulse Resp BP Pulse Ox -98.3 F L 54 L 17 166/111 100 10/03/17 06:49 10/03/17 10:17 10/03/17 06:49 10/03/17 10:10/03/17 06:49 General appearance: Present: no acute distress Results - Labs CBC & Chem 7: 10/01/17 05:21 10/03/17 05:31 Labs: Laboratory Last Values WBC 8.0 K/mm3 (4.5-11.0) 10/01/17 05:21 RBC 4.96 M/mm3 (3.65-5.03) 10/01/17 05:21 Hgb 15.7 gm/dl (11.8-15.2) H 10/01/17 05:21 Hct 48.2 % (35.5-45.6) H 10/01/17 05:21 MCV 97 fl (84-94) H 10/01/17 05:21 MCH 32 pg (28-32) 10/01/17 05:21 MCHC 33 % (32-34) 10/01/17 05:21 RDW 14.4 % (13.2-15.2) 10/01/17 05:21 Plt Count 314 K/mm3 (140-440) 10/01/17 05:21 Lymph % (Auto) 19.8 % (13.4-35.0) 10/01/17 05:21 [place] % (Auto) 8.0 % (0.0-7.3) H 10/01/17 05:21 Eos % (Auto) 1.1 % (0.0-4.3) 10/01/17 05:21 Baso % (Auto) 0.6 % (0.0-1.8) 10/01/17 05:21 Lymph # 1.6 K/mm3 (1.2-5.4) 10/01/17 05:21 [place] # 0.6 K/mm3 (0.0-0.8) 10/01/17 05:21 Eos # 0.1 K/mm3 (0.0-0.4) 10/01/17 05:21 Baso # 0.0 K/mm3 (0.0-0.1) 10/01/17 05:21 Seg Neutrophils % 70.5 % (40.0-70.0) H 10/01/17 05:21 Seg Neutrophils # 5.6 K/mm3 (1.8-7.7) 10/01/17 05:21 D-Dimer 5685.50 ng/mlDDU (0-234) H 09/27/17 13:36 VBG pH 7.517 (7.320-7.420) H 09/27/17 12:59 Sodium 142 mmol/L (137-145) D 10/03/17 05:31 Potassium 3.7 mmol/L (3.6-5.0) 10/03/17 05:31 Chloride 105.8 mmol/L (98-107) 10/03/17 05:31 Carbon Dioxide 23 mmol/L (22-30) 10/03/17 05:31 Anion Gap 17 mmol/L 10/03/17 05:31 BUN 15 mg/dL (9-20) 10/03/17 05:31 Creatinine 0.6 mg/dL (0.8-1.5) L 10/03/17 05:31 Estimated GFR > 60 ml/min 10/03/17 05:31 BUN/Creatinine Ratio 25 % 10/03/17 05:31 Glucose 143 mg/dL (75-100) H 10/03/17 05:31 POC Glucose 270 (70-105) H 10/03/17 12:21 Hemoglobin A1c 9.3 % (4-6) H 09/27/17 16:12 Osmolality 357 Mosm/kg 09/29/17 16:47 Lactic Acid 1.70 mmol/L (0.7-2.0) 09/28/17 01:05 Uric Acid 5.8 mg/dL (3.5-7.6) 09/29/17 16:47 Calcium 8.2 mg/dL (8.4-10.2) L 10/03/17 05:31 Magnesium 3.90 mg/dL (1.7-2.3) H 09/27/17 15:48 Total Bilirubin 1.30 mg/dL (0.1-1.2) H 10/02/17 05:58 AST 127 units/L (5-40) H 10/02/17 05:58 ALT 111 units/L (7-56) H 10/02/17 05:58 Alkaline Phosphatase 182 units/L (35-129) H 10/02/17 05:58 Ammonia 41.0 umol/L (25-60) 09/29/17 14:15 Total Creatine Kinase 682 units/L (55-170) H 09/27/17 12:59 Total Protein 6.7 g/dL (6.3-8.2) 10/02/17 05:58 Albumin 2.6 g/dL (3.9-5) L 10/02/17 05:58 Albumin/Globulin Ratio 0.6 % 10/02/17 05:58 TSH 1.080 mlU/mL (0.270-4.200) 09/28/17 12:07 Free T4 0.93 ng/dL (0.76-1.46) 09/27/17 15:48 Urine Color Yellow (Yellow) 09/27/17 13:10 Urine Turbidity Clear (Clear) 09/27/17 13:10 Urine pH 5.0 (5.0-7.0) 09/27/17 13:10 Ur Specific [place] 1.026 (1.003-1.030) 09/27/17 13:10 Urine Protein 100 mg/dl mg/dL (Negative) 09/27/17 13:10 Urine Glucose (UA) >=500 mg/dL (Negative) 09/27/17 13:10 Urine Ketones Neg mg/dL (Negative) 09/27/17 13:10 Urine Blood Lg (Negative) 09/27/17 13:10 Urine Nitrite Neg (Negative) 09/27/17 13:10 Urine Bilirubin Neg (Negative) 09/27/17 13:10 Urine Urobilinogen 2.0 mg/dL (<2.0) 09/27/17 13:10 Ur Leukocyte Esterase Neg (Negative) 09/27/17 13:10 Urine WBC (Auto) 7.0 /HPF (0.0-6.0) H 09/27/17 13:10 Urine RBC (Auto) 181.0 /HPF (0.0-6.0) 09/27/17 13:10 U Epithel Cells (Auto) < 1.0 /HPF (0-13.0) 09/27/17 13:10 Urine Mucus Few /HPF 09/27/17 13:10 Urine Opiates Screen Presumptive negative 09/27/17 13:10 Urine Methadone Screen Presumptive negative 09/27/17 13:10 Ur Barbiturates Screen Presumptive negative 09/27/17 13:10 Ur Phencyclidine Scrn Presumptive negative 09/27/17 13:10 Ur Amphetamines Screen Presumptive negative 09/27/17 13:10 U Benzodiazepines Scrn Presumptive negative 09/27/17 13:10 Urine Cocaine Screen Presumptive negative 09/27/17 13:10 U Marijuana (THC) Screen Presumptive negative 09/27/17 13:10 Drugs of Abuse Note Disclamer 09/27/17 13:10 Plasma/Serum Alcohol < 0.01 % (0-0.07) 09/27/17 12:52
[2017-10-03] MEDS: D5W 1,000 ML IV SCH (14:38)
--- NOTE | 2017-10-03 16:36 | Progress Note ---
Assessment and Plan Impression: * Hypernatremia secondary to dehydration - corrected * Encephalopathy * PNA * Atrial fibrillation Plan: * Encourage po hydration * Abx per primary team * Rate control per cardiology * Avoid potential nephrotoxins * Daily labs * Will see prn Subjective Date of service: 10/03/17 Principal diagnosis: afib Interval history: Patient has no complaints today. Objective - Vital Signs Vital signs: Vital Signs - 12hr 10/03/17 10/03/17 10/03/17 06:49 10:17 14:40 Temperature -98.3 F L Pulse Rate 61 54 L 61 Respiratory 17 Rate Blood Pressure 166/111 161/104 Blood Pressure 145/96 [Left] O2 Sat by Pulse 100 Oximetry - General Appearance General appearance: well-developed, well-nourished EENT: ATNC Respiratory: Present: Clear to Ascultation Cardiology: regular, S1S2 Gastrointestinal: normal, no tenderness, no distended Integumentary: no rash Neurologic: no focal deficit Musculoskeletal: other (no edema) Psychiatric: cooperative - Lab 10/01/17 05:21 10/03/17 05:31 Most recent lab results Calcium 8.2 mg/dL (8.4-10.2) L 10/03/17 05:31 Magnesium 3.90 mg/dL (1.7-2.3) H 09/27/17 15:48
[2017-10-03] MEDS: ZITHROMAX 500 MG in NACL 0.9% 250ML 250 ML IV SCH (19:02)
[2017-10-03] MEDS: ROCEPHIN/NS 2 GM/100 ML 2 GM/100 ML BAG IV SCH (22:25)
[2017-10-03] MEDS: LOVENOX SUB-Q SCH (22:26)
[2017-10-03] MEDS: LANTUS SUB-Q SCH (22:27)
[2017-10-04] MEDS: D5W 1,000 ML IV SCH (05:34)
[2017-10-04] MEDS: HumaLOG SUB-Q SCH (05:35)
[2017-10-04 05:56] LABS: BUN/Creatinine Ratio 18; Blood Urea Nitrogen 11 mg/dL (9-20); Calcium 8.4 mg/dL (8.4-10.2); Hemolysis Index 64
--- NOTE | 2017-10-04 09:35 | Discharge Summary ---
Providers - Providers Date of Admission: 09/27/17 16:06 Date of discharge: 10/04/17 Attending physician: CHACE FULLER MD 09/27/17 16:30 Consult to Cardiology [CONS] Routine Consulting Provider: ANNA ACOSTA Reason For Exam: atril fib with rvr 09/29/17 12:00 Consult to Physician [CONS] Routine Comment: COMPLETED - CANELO Consulting Provider: YOJANA JACKSON Physician Instructions: Reason For Exam: hypernatremia, ARF 09/29/17 12:44 Consult to Dietitian/Nutrition [CONS] Routine Physician Instructions: Reason For Exam: ng tube feeding Reason for Consult: Write/Manage Tube Feeding Consult to Physician [CONS] Routine Comment: COMPLETED - CANELO Consulting Provider: SHAI COOK Physician Instructions: Reason For Exam: AMS, r/o CVA 09/30/17 08:53 Speech Therapy Evaluation and Treat [CONS] Routine Reason For Exam: ALTERED MENTAL STATUS 10/03/17 08:24 Physical Therapy Evaluation and Treat [CONS] Routine Comment: Reason For Exam: deconditioning Primary care physician: ENVIRONMENTAL SPECIALIST Hospitalization Reason for admission: Sepsis, AMS, Atrial fibrillation Condition: Serious Pertinent studies: CTA chest, Echo, CXR, renal ultrasound Hospital course: Admission HPI 62 YO Male with no PMH presents to ED for evaluation. Pt is confused and unable to provide history. Pt history taken from family who is at bedside during exam and interview. As per family, the patient was in his usual state of health on September 18, which is the last time either family member present saw or spoke to the patient. [facility] Police were called to do a "well check" on the patient by a friend. Upon arrival, the patient was found down in his home and confused. EMS was notified, and upon arrival the patient was found to be confused and unable to provide history. Pt transported to [facility] for further care and evaluation. Pt seen and evaluated in ED and found to have Atrial Fib, Encephalopathy, as well as RLL Pneumonia complicated by Sepsis. Pt admitted to telemetry, and initiated on Sepsis/Pneumonia protocol. No reports of fever, chills, CP, Palpitations, NVD, Trauma, Falls, recent ill contacts. Patient was admitted to the floor and was managed for sepsis and atrial fibrillation. Patient's sepsis resolved and patient's mentation improved. Patient was evaluated by cardiology and recommended rate control only, no anticoagulation was recommended because of AMS. Patient's heart rate was in the 50's and I stopped the BB. I have scheduled the patient to have follow up at [facility] for follow up in 1 week. patient was hemodynamically stable at the time of discharge. I have discussed with [facility] and called the patient to start him on eliquis but couldn't get in touch with him and talked with darwin. She said the [place] is in [place]. Disposition: DC-01 TO HOME OR SELFCARE Time spent for discharge: 32 minutes - Discharge Diagnoses (1) Altered mental status Status: Acute Qualifiers: Altered mental status type: unspecified Qualified Code(s): R41.82 - Altered mental status, unspecified (2) Atrial fibrillation with RVR Status: Acute (3) Encephalopathy Status: Acute (4) Lactic acidosis Status: Acute (5) Pneumonia Status: Acute Qualifiers: Pneumonia type: due to unspecified organism Laterality: right Lung location: lower lobe of lung Qualified Code(s): J18.1 - Lobar pneumonia, unspecified organism (6) Sepsis Status: Acute Qualifiers: Sepsis type: sepsis due to unspecified organism Qualified Code(s): A41.9 - Sepsis, unspecified organism Core Measure Documentation - Palliative Care Palliative Care/ Comfort Measures: Not Applicable - Core Measures Any of the following diagnoses?: none Exam - Physical Exam Narrative exam: Not in cardiopulmonary distress. The patient appeared well nourished and normally developed. Vital signs as documented. Head exam is unremarkable. No scleral icterus . Neck is without jugular venous distension, thyromegaly, or carotid bruits. Lungs are clear to auscultation. Cardiac exam reveals regular rate and Rhythm. First and second heart sounds normal. No murmurs, rubs or gallops. Abdominal exam reveals normal bowel sounds, no masses, no organomegaly and no aortic enlargement. Extremities are nonedematous and both femoral and pedal pulses are normal. HEALTH INFORMATION CODER: Alert and oriented 3. No focal weakness. - Constitutional Vitals: Temp Pulse Resp BP Pulse Ox 97.8 F 61 18 163/103 97 10/04/17 08:00 10/04/17 08:00 10/04/17 08:00 10/04/17 08:00 10/04/17 08:58 Plan Activity: no restrictions Weight Bearing Status: Full Weight Bearing Diet: low salt, diabetic Additional Instructions: Follow up at [facility] in 1-2 weeks. Follow up with: PRIMARY CARE, [Primary Care Provider] - 3-5 Days Prescriptions: amLODIPine [Norvasc] 10 mg PO DAILY #30 tab metFORMIN [Glucophage] 1,000 mg PO BID #120 tablet
[2017-10-04] MEDS ORDERED: NORVASC ONE (13:42)
[2017-10-04 16:55] VITALS: BP 165/94
[2017-10-05] MEDS ORDERED: NORVASC PO SCH (10:00)
== END 2017-10-04 15:42 | disposition home or self-care (01) | DRG 871 ==
LOC: ED 12:06 → 4A 16:06 → UNDODISIN 10-03 20:00
PROVIDERS: ADMIT Internal Medicine; ATTEND Internal Medicine
DX: A41.9 Sepsis, unspecified organism (principal); J18.1 Lobar pneumonia, unspecified organism; G93.41 Metabolic encephalopathy; N17.9 Acute kidney failure, unspecified; I48.91 Unspecified atrial fibrillation; E10.65 Type 1 diabetes mellitus with hyperglycemia; I10 Essential (primary) hypertension
CPT/HCPCS: 36415; 70450; 71045; 71275; 74018; 74022; 74230; 76770; 80048; 80053; 80307; 80320; 81001; 82140; 82550; 82805; 82962; 83036; 83735; 83930; 84439; 84443; 84550; 85025; 85379; 87040; 93005; 93010; 93306; 94760; 95819; 96365; 96366; 96368; 96375; G0480; J0456; J0696; J1650; J1815; J1956; J2060; J2405; J7030; J7050; J7070; Q9967